=== PATIENT | female | born 1970 | race Caucasian/White ===

== ENCOUNTER 2019-12-25 22:55 | Emergency (ER) | payer OTHER, SELFPAY ==
[2019-12-25 23:04] VITALS: BP 140/78; PULSE 82; RESP 16; TEMP 36.2; O2SAT 99; BMI 23.9
--- NOTE | 2019-12-26 01:44 | ED_ITS ---
HPI - Fall General Chief Complaint: Fall Stated Complaint: fall head lac Time Seen by Provider: 12/26/19 01:41 History of Present Illness HPI Narrative: Patient is a 49-year-old female presents today after fallen accidentally. Patient hit the left temporal area causing a small laceration per patient. Patient denies any loss of consciousness. No nausea no vomiting no change in vision or focal weakness. Patient is not on any blood thinners. No coughing or congestion or upper respiratory symptoms. Patient ambulated to the hospital. She has some home. Pain is localized Related Data Allergies Allergy/AdvReac Type Severity Reaction Status Date / Time No Known Allergies Allergy Unverified 10/31/19 14:52 Review of Systems Review of Systems: Constitutional: No Weight loss, No Fever, No Chills, No Night Sweats, No Fatigue, No Malaise ENT/Mouth: No Hearing loss, No Ear Pain, No Nasal Congestion, No Sinus Pain, No Hoarseness, No sore throat, No Rhinorrhea, No Swallowing Difficulty Eyes: No Eye Pain, No Swelling, No Redness, No Foreign Body, No Discharge, No Vision Changes Cardiovascular: No Chest Pain, No SOB, No Dyspnea on Exertion, No Orthopnea, No Edema, No Palpitations Respiratory: No Cough, No Sputum, No Wheezing, No Smoke Exposure, No Dyspnea Gastrointestinal: No Nausea, No Vomiting, No Diarrhea, No Constipation, No abdominal Pain, No Hematochezia, No Melena Genitourinary: no irregular bleeding, No Dysuria, No Urinary Frequency, No Hematuria, No Urinary Incontinence, No Urgency, No Flank Pain, No Urinary Flow Changes, No Hesitancy Musculoskeletal: No joint pain, No Myalgias, No Joint Swelling Skin: positive laceration to the left temporal area Neuro: No Weakness, No Numbness, No Paresthesias, No Loss of Consciousness, No Dizziness, No Headache Psych: No Anxiety/Panic, No Depression, No SI/HI/AH/VH, No Social Issues, Heme/Lymph: No Bruising, No Bleeding,No Lymphadenopathy Endocrine: No Polyuria, No Polydipsia, No Temperature Intolerance [facility] Social History Social History Advance Directives: No Advance Directives Information Provided: No Physical Exam Vital Signs: Vital Signs: Last Vital Signs Temp 97.1 F 12/25/19 23:04 Pulse 82 12/25/19 23:04 Resp 16 12/25/19 23:04 BP 140/78 H 12/25/19 23:04 Pulse Ox 99 12/25/19 23:04 Body Mass Index 23.9 Appearance: Alert. Oriented X3. No acute distress. Eyes: Pupils equal, round and reactive to light head exam positive 3 cm laceration to the right temporal area down to subcutaneous tissue. Bleeding controlled.. ENT: no hemotympanum bilaterally Neck: Normal inspection. Neck supple. No lymph nodes noted. No crepitus CVS: Normal heart rate and rhythm. Pulses normal. Normal S1 and S2 Respiratory: No respiratory distress. Breath sounds normal. No Wheezing. No rales Abdomen: Soft and nontender. No rigidity. No distention. good BS x4 Skin: Skin warm and dry. Normal skin color. Normal skin turgor. Extremities: No lower extremity edema. Neurovascular intact to all extremities. No Lacerations. No Rash Neuro: Oriented X 3. No motor deficit. No sensory deficit. Moving all extermities. No slurred speech Procedures Laceration Laceration 1: Site: scalp Size (cm): 3 Description: linear Depth: simple, single layer Pre-repair: wound explored and irrigated extensively Skin layer closed with: other ( staple) Size (cm): other ( Two jonathon) MDM - Fall MDM Narrative Medical decision making narrative: no nausea no vomiting no focal weakness. No dizziness no change in vision. At this time felt patient does not need to have a CT scan. Patient is not on blood thinners. Neurologically intact. Wound was closed. Will discharge patient home currently in stable condition. Discharge Plan Discharge Clinical Impression: Laceration, Head injury Patient Disposition: Home, Self-Care Instructions: Head Injury (ED), Laceration (ED) Additional Instructions: Nausea, vomiting change in vision focal weakness on control headache return to the emergency department immediately. Referrals: Physician,None [Primary Care Provider] - 5 days ( Follow-up with your doctor in about 5 days for staple removal. If he cannot find a doctor you are always welcome back to the emergency department for staple removal.)
--- NOTE | 2019-12-26 02:42 | PC.NURSE ---
dc vs 112/55 hr 53. no questions regarding d/c instructions.
== END 2019-12-26 02:41 | disposition home or self-care (01) ==
PROVIDERS: Emergency Provider Emergency Medicine Emergency Medical Services
DX: S01.01XA Laceration without foreign body of scalp, initial encounter (principal); G44.309 Post-traumatic headache, unspecified, not intractable; W01.0XXA Fall on same level from slipping, tripping and stumbling without subsequent striking against object, initial encounter; Y93.9 Activity, unspecified; Y92.9 Unspecified place or not applicable; Y99.9 Unspecified external cause status
CPT/HCPCS: 12002; 99283

== ENCOUNTER 2020-01-01 13:52 | Emergency (ER) | payer OTHER, SELFPAY ==
[2020-01-01 14:32] VITALS: BP 144/76; PULSE 69; RESP 14; TEMP 36.6; O2SAT 100; BMI 24.6
--- NOTE | 2020-01-01 15:27 | ED.RECABL ---
HPI - Recheck/Abnormal Lab/Rx General Chief Complaint: Wound/Laceration Stated Complaint: SUTURE REMOVAL,FACE SWOLLEN Time Seen by Provider: 01/01/20 15:27 Source: patient Mode of arrival: ambulatory Limitations: no limitations History of Present Illness HPI narrative: staple removal. Patient was seen here on 01/2020 and had 2 jonathon placed to her left temporal area. Patient reports she is having pain and swelling. Denies drainage. Denies any other symptoms complaints or concerns at this time. Related Data Previous Rx's Medication Instructions Recorded cephalexin [Keflex] 500 mg PO Q6H 10 Days #40 cap 01/01/20 doxycycline monohydrate 100 mg PO BID 10 Days #20 cap 01/01/20 ibuprofen 800 mg PO Q8H PRN #14 tab 01/01/20 oxycodone-acetaminophen [Percocet] 1 tab PO Q6H PRN #10 tab 01/01/20 Allergies Allergy/AdvReac Type Severity Reaction Status Date / Time No Known Allergies Allergy Unverified 10/31/19 14:52 Review of Systems Review of Systems: Constitutional : No Fever, No Chills, Cardiovascular : No Chest Pain, No SOB Respiratory : No Dyspnea Gastrointestinal : No abdominal pain Musculoskeletal : No Joint Swelling Skin : No Foreign bodies, No rash, No surrounding erythema Neuro : No Weakness, No Numbness/tingling Psych : No SI/HI/thoughts of self injury Yes all other systems are reviewed and are negative [facility]LY [facility], [facility] Past Medical History Attestation statement: The following information was validated with the patient. Social History Social History Advance Directives: No Advance Directives Information Provided: Yes Physical Exam Vital Signs: Vital Signs: Last Vital Signs Temp 97.9 F 01/01/20 14:32 Pulse 69 01/01/20 14:32 Resp 14 01/01/20 14:32 BP 144/76 H 01/01/20 14:32 Pulse Ox 100 01/01/20 14:32 Body Mass Index 24.6 vital signs have been reviewed as normal and appeared to be correct. Blood pressure normal. Heart rate normal. Respiration rate normal. Temperature normal. Oxygen saturation normal. Appearance: Alert. Oriented X3. No acute distress. Head: To left temporal lower aspect there is [address] and mild soft tissue swelling and tender to palpation. No drainage /fluctuance/foreign body noted. No streaking noted. Eyes: PERRLA. EOMI. Conjunctiva and sclera normal. Eyelids normal. ENT: Pharynx normal. Uvula midline. Moist mucous membranes. Neck: Normal inspection. Neck supple. FROM. No adenopathy. No meningeal signs. CVS: Normal heart rate and rhythm. Heart sound normal. Respiratory: No respiratory distress. Painless inspiration. Back: Full range of motion noted. Skin: Skin warm and dry. Normal skin color. Normal skin turgor. No rashes/lesions/lacerations noted. Extremities: Extremities exhibit normal range of motion. Extremities nontender. Neuro: Oriented X 3. No motor deficit. No sensory deficit. Reflexes normal. Course Course Course Narrative: Patient is now status post staple removal. Patient mild soft tissue swelling and tender to palpation will treat for cellulitic infection no purulent drainage noted or streaking. Will DC home with antibiotics and symptomatic treatment along with instructions return if any new or worsening symptoms and to follow up with primary care provider. Patient understands agrees the plan. Procedures Procedure Narrative Procedure Narrative: 2 jonathon removed from left temporal area. Mild soft tissue swelling and erythema to site. No streaking / fluctuance or foreign bodies noted. The wound was cleaned and a clean dressing was placed. Patient tolerated procedure well no complications. MDM - Recheck/Abnormal Lab/Rx Medical Records Attestation: I reviewed the patient's medical records. Discharge Plan Discharge Clinical Impression: Visit for suture removal, Cellulitis Patient Disposition: Home, Self-Care Instructions: Cellulitis (ED), Stitches Removal (ED) Prescriptions: New ibuprofen 800 mg tablet 800 mg PO Q8H PRN (Reason: pain) Qty: 14 RF: 0 oxycodone-acetaminophen [Percocet] 5-325 mg tablet 1 tab PO Q6H PRN (Reason: pain) Qty: 10 RF: 0 doxycycline monohydrate 100 mg capsule 100 mg PO BID 10 Days Qty: 20 RF: 0 cephalexin [Keflex] 500 mg capsule 500 mg PO Q6H 10 Days Qty: 40 RF: 0 Referrals: Anthony Zelaya MD [Primary Care Provider] - 2 days Stand Alone Forms: Work/School Release Print Language: Sinhala
== END 2020-01-01 16:03 | disposition home or self-care (01) ==
PROVIDERS: Emergency Provider Emergency Medicine; PCP Internal Medicine
DX: L03.211 Cellulitis of face (principal); Z48.02 Encounter for removal of sutures; Z79.899 Other long term (current) drug therapy
CPT/HCPCS: 99283

== ENCOUNTER 2020-02-04 09:20 | Outpatient (REF) | payer OTHER, SELFPAY | END 2020-02-04 09:21 | disposition home or self-care (01) | LOC: HO.LAB 09:20 | PROVIDERS: PCP Internal Medicine; Visit Provider Internal Medicine | DX: Z20.828 Contact with and (suspected) exposure to other viral communicable diseases (principal) | CPT/HCPCS: C9803; U0003 ==

== ENCOUNTER 2020-02-08 10:23 | Outpatient (REF) | payer OTHER, SELFPAY | END 2020-02-08 10:24 | disposition home or self-care (01) | LOC: HO.LAB 10:23 | PROVIDERS: Visit Provider Internal Medicine | DX: Z20.828 Contact with and (suspected) exposure to other viral communicable diseases (principal) | CPT/HCPCS: C9803; U0003 ==

== ENCOUNTER 2020-05-22 14:34 | Outpatient (REF) | payer OTHER, SELFPAY ==
[2020-05-23 15:11] LABS: CT PCR NOT DETECTED (Not Detect.); NG PCR NOT DETECTED (Not Detect.)
[2020-05-23 15:13] LABS: BV Int Neg Control Negative (Negative)
[2020-05-23 15:14] LABS: BV Int Pos Control Positive (Positive)
== END 2020-05-22 14:35 | disposition home or self-care (01) ==
LOC: HO.LAB 14:34
PROVIDERS: Visit Provider Obstetrics & Gynecology
DX: Z01.419 Encounter for gynecological examination (general) (routine) without abnormal findings (principal); Z11.3 Encounter for screening for infections with a predominantly sexual mode of transmission
CPT/HCPCS: 87480; 87491; 87510; 87591; 87660

== ENCOUNTER 2020-05-30 09:57 | Outpatient (REF) | payer OTHER, SELFPAY ==
--- NOTE | ~2020-05-30 | MM_ITS ---
EXAMINATION: MM SCREENING DIGITAL BREAST TOMOSYNTHESIS, BILATERAL CLINICAL INFORMATION: Screening. Asymptomatic. The lifetime risk of breast cancer based on the Tyrer-Cuzick Model is 11%. COMPARISON: Mammography: 11/10/2018, 10/28/2017, 10/06/2016 TECHNIQUE: Digital breast tomosynthesis is performed in both the craniocaudal and mediolateral oblique views along with computer-aided detection (CAD). Synthesized 2D images are generated from the tomosynthesis. FINDINGS: There are scattered areas of fibroglandular density (ACR BI-RADS breast composition Category b). There are no significant masses, abnormal calcifications, or other abnormalities. Parenchymal pattern is similar to prior exams. No significant changes. MM/MM tomosynthesis screening BI IMPRESSION: No mammographic evidence of malignancy. ASSESSMENT: BI-RADS 1: Negative RECOMMENDATION: Routine annual mammography screening. This patient's information was entered into a reminder system with a target due date for their next mammogram.
== END 2020-05-30 09:58 | disposition home or self-care (01) ==
LOC: HO.MAMMO 09:57
PROVIDERS: Visit Provider Internal Medicine
DX: Z12.31 Encounter for screening mammogram for malignant neoplasm of breast (principal)
CPT/HCPCS: 77063; 77067

== ENCOUNTER 2020-06-13 19:48 | Emergency (ER) | payer OTHER, SELFPAY ==
--- NOTE | ~2020-06-13 | XR_ITS ---
EXAMINATION: XR FINGER, LEFT CLINICAL INFORMATION: Thumb laceration COMPARISON: None TECHNIQUE: 3 views of the left thumb. FINDINGS: There is disruption of soft tissues on the ventral surface thumb. The bones and soft tissues are unremarkable. No acute fracture. No foreign body. Accessory ossicles adjacent to the PIP and MCP joint first digit. Alignment is anatomic. Joint spaces are maintained. XR/XR finger LT min 2V IMPRESSION: No fracture or retained foreign body
[2020-06-13 20:01] VITALS: BP 141/82; PULSE 67; RESP 18; TEMP 36.6; O2SAT 100; BMI 24.6
--- NOTE | 2020-06-13 20:34 | ED.WOUNDLAC ---
HPI - Wound/Laceration General Chief Complaint: Wound/Laceration Stated Complaint: finger lac Time Seen by Provider: 06/13/20 21:19 Source: patient Mode of arrival: ambulatory Limitations: no limitations History of Present Illness HPI narrative: 50-year-old female presents with left thumb laceration. Patient was cutting frozen meat, slipped with her knife and cut her left thumb. Unknown when her last Tdap vaccination was given. Patient does have full range of motion but cannot stop the bleeding on her own. Onset (ago): hour(s) (Within the hour of arrival) Extremity Location: left: hand (thumb) Place: home Patient tetanus UTD: No Context: accidental Associated symptoms: pain Treatments prior to arrival: bandage Related Data Previous Rx's Medication Instructions Recorded cephalexin [Keflex] 500 mg PO Q6H 10 Days #40 cap 01/01/20 doxycycline monohydrate 100 mg PO BID 10 Days #20 cap 01/01/20 ibuprofen 800 mg PO Q8H PRN #14 tab 01/01/20 oxycodone-acetaminophen [Percocet] 1 tab PO Q6H PRN #10 tab 01/01/20 psyllium husk (aspartame) 3.4 gram 1 packet PO DAILY #30 ea 05/22/20 oral powder packet sennosides 8.6 mg tablet 8.6 mg PO BEDTIME #90 tab 05/22/20 metronidazole 0.75 % vaginal gel 1 appful VAGINAL BEDTIME 5 Days 05/26/20 #70 g Allergies Allergy/AdvReac Type Severity Reaction Status Date / Time No Known Allergies Allergy Verified 06/13/20 20:04 Review of Systems Review of Systems: Constitutional: No Fever, No Chills ENT/Mouth: No Ear Pain, No Hoarseness, No sore throat Eyes: No Eye Pain, No Swelling, No Redness, No Foreign Body Cardiovascular: No Chest Pain, No SOB Respiratory: No Cough, No Dyspnea Gastrointestinal: No Nausea, No Vomiting, No Diarrhea, No abdominal Pain Genitourinary: No Dysuria, No Hematuria Musculoskeletal: positive left thumb pain, No Myalgias, No Joint Swelling Skin: Positive left thumb laceration, No rash Neuro: No Weakness, No Numbness, No Paresthesias, No Loss of Consciousness, No Dizziness, No Headache Psych: No Anxiety/Panic, No Depression Heme/Lymph: no easy bruising, no Lymphadenopathy Endocrine: No Polyuria, No Polydipsia Yes all other systems are reviewed and are negative FOR[facility]LY [facility] Past Medical History Attestation statement: The following information was validated with the patient. Source: old records reviewed Medical History HTN (hypertension) Migraines Surgical History History of delivery Social History Social History Alcohol intake: never Smoking Status: Current every day smoker Advance Directives: No Advance Directives Information Provided: Yes Gender identity: female Physical Exam Vital Signs: Vital Signs: Last Vital Signs Temp 97.8 F 06/13/20 20:01 Pulse 67 06/13/20 20:01 Resp 18 06/13/20 20:01 BP 141/82 H 06/13/20 20:01 Pulse Ox 100 06/13/20 20:01 Body Mass Index 24.6 Appearance: Alert. Oriented X3. No acute distress. Eyes: Pupils equal, round and reactive to light. ENT: Pharynx normal. Neck: Normal inspection. Neck supple. CVS: Normal heart rate and rhythm. Pulses normal. Respiratory: No respiratory distress. Breath sounds normal. Abdomen: Soft and nontender. Skin: Skin warm and dry. Normal skin color. Normal skin turgor. Extremities: No lower extremity edema. Neuro: No motor deficit. No sensory deficit. Course Course Course Narrative: 50-year-old female with past medical history of hypertension and migraines presents with some laceration to the left side. States that she was cutting frozen meat, knife slipped and cut the tip of her left thumb. Will update Tdap vaccine, order x-rays, and plan for laceration repair. She does have full range of motion to all extremities, strength 5/5, no indication of tendon injury. No nail involvement. Prepped and draped in sterile fashion. Please refer to procedure note for full details. Patient tolerated procedure well. Patient verbalized understanding of wound care, discharge instructions and agrees to plan of care discharge home. Will return in 10 days for suture removal. Procedures Laceration Laceration 1: Site: hand (Left thumb) Size (cm): 3 Description: linear Depth: simple, single layer Local Anesthetic: lidocaine 2% Amount of anesthesia used (mL): 5 Pre-repair: wound explored, irrigated extensively and deep structures intact Skin layer closed with: nylon Size (cm): 5-0 Number of sutures: 5 Technique: simple, interrupted MDM - Wound/Laceration Differential Diagnosis Differential diagnosis: Likely laceration Medical Records Attestation: I reviewed the patient's medical records. Imaging Data thumb x-ray: Attestation: I personally reviewed and interpreted this imaging study as follows: Discharge Plan Discharge Clinical Impression: Laceration Patient Disposition: Home, Self-Care Instructions: Care For Your Stitches (ED), Finger Laceration (ED) Additional Instructions: You were evaluated for thumb laceration. You may wash her hands but do not soak your hand for long periods of time, do not swim or go into a hot tub. Do not wash dishes until sutures are removed. You may cover your hand with a glove to keep the wound dry. If you notice any swelling, loss of sensation, or purulent drainage from the site please return to the emergency department or primary care physician for evaluation. We updated your Tdap vaccine today. Thank you for choosing this emergency department for evaluation. Please follow-up with primary care physician as needed. Return to the emergency department for any new, concerning, or worsening symptoms. Prescriptions: No Action metronidazole [Metrogel Vaginal] 0.75 % gel 1 appful vaginal BEDTIME 5 Days Qty: 70 RF: 0 ibuprofen 800 mg tablet 800 mg PO Q8H PRN (Reason: pain) Qty: 14 RF: 0 oxycodone-acetaminophen [Percocet] 5-325 mg tablet 1 tab PO Q6H PRN (Reason: pain) Qty: 10 RF: 0 doxycycline monohydrate 100 mg capsule 100 mg PO BID 10 Days Qty: 20 RF: 0 cephalexin [Keflex] 500 mg capsule 500 mg PO Q6H 10 Days Qty: 40 RF: 0 sennosides [Senna Lax] 8.6 mg tablet 8.6 mg PO BEDTIME Qty: 90 RF: 11 Metamucil Fiber Singles 3.4 gram powder in packet 1 packet PO DAILY Qty: 30 RF: 11 Interventions: ED Discharge Assessment Last Done: 06/13/20 21:59 Discharge Date/Time: 06/13/20 22:00
[2020-06-13] MEDS: Lidocaine HCl 2 % MPF 5 ML VIAL 10 ML SUBCUT (21:11)
[2020-06-13] MEDS: Diphth,Pertus(ACell),Tet Adult 0.5 ML SYRINGE IM (21:11)
== END 2020-06-13 22:00 | disposition home or self-care (01) ==
PROVIDERS: Emergency Provider Emergency Medicine
DX: S61.215A Laceration without foreign body of left ring finger without damage to nail, initial encounter (principal); M79.645 Pain in left finger(s); W26.0XXA Contact with knife, initial encounter; Y93.9 Activity, unspecified; Y92.9 Unspecified place or not applicable; Y99.9 Unspecified external cause status; F17.200 Nicotine dependence, unspecified, uncomplicated; Z79.899 Other long term (current) drug therapy; Z71.6 Tobacco abuse counseling
CPT/HCPCS: 12002; 73140; 90471; 90715; 99284

== ENCOUNTER 2020-06-22 10:13 | Emergency (ER) | payer OTHER, SELFPAY ==
[2020-06-22 10:28] VITALS: BP 136/86; PULSE 77; RESP 18; TEMP 36.5; O2SAT 99; BMI 24.6
--- NOTE | 2020-06-22 11:12 | ED_ITS ---
HPI - General Adult General Chief complaint: Skin/Abscess/Foreign Body Stated complaint: wound check Source: patient Mode of arrival: ambulatory Limitations: no limitations History of Present Illness HPI narrative: Patient presents to ED for wound check of left hand thumb. Patient has sutures placed last Monday. Patient complaining since laceration occurred of having some numbness to left thumb. NO pus discharge, foul odor, fever redmess, or chills at suture repair site. Related Data Previous Rx's Medication Instructions Recorded cephalexin [Keflex] 500 mg PO Q6H 10 Days #40 cap 01/01/20 doxycycline monohydrate 100 mg PO BID 10 Days #20 cap 01/01/20 ibuprofen 800 mg PO Q8H PRN #14 tab 01/01/20 oxycodone-acetaminophen [Percocet] 1 tab PO Q6H PRN #10 tab 01/01/20 psyllium husk (aspartame) 3.4 gram 1 packet PO DAILY #30 ea 05/22/20 oral powder packet sennosides 8.6 mg tablet 8.6 mg PO BEDTIME #90 tab 05/22/20 metronidazole 0.75 % vaginal gel 1 appful VAGINAL BEDTIME 5 Days 05/26/20 #70 g Allergies Allergy/AdvReac Type Severity Reaction Status Date / Time No Known Allergies Allergy Verified 06/13/20 20:04 Review of Systems Review of Systems: Yes all other systems are reviewed and are negative Constitutional: Constitutional: Reports as per HPI and Reports no additional constitutional complaints Eyes: Eyes: Reports as per HPI and Reports no additional eye complaints ENT: Reports system reviewed and no additional complaints, except as documented and Reports as per HPI Cardiovascular: Cardiovascular: Reports as per HPI and Reports no additional cardiovascular complaints Respiratory: Respiratory: Reports as per HPI and Reports no additional respiratory complaints Gastrointestinal: Gastrointestinal: Reports as per HPI and Reports no additional gastrointestinal complaints Genitourinary: Genitourinary: Reports no additional female genitourinary complaints and Reports as per HPI Musculoskeletal: Musculoskeletal: Reports no additional musculoskeletal complaints and Reports as per HPI Comments: left thumb Neurologic: Reports system reviewed and no additional complaints, except as documented and Reports as per HPI Psychiatric: Psychiatric: Reports no additional psychiatric complaints and Reports as per HPI PMFSH Past Medical History Medical History HTN (hypertension) Migraines Surgical History History of delivery Social History Social History Alcohol intake: never Smoking Status: Current every day smoker Advance Directives: No Advance Directives Information Provided: No Patient : No Gender identity: female Physical Exam 2 Vital Signs: Vital Signs: Last Vital Signs Temp 97.7 F 06/22/20 10:28 Pulse 77 06/22/20 10:28 Resp 18 06/22/20 10:28 BP 136/86 06/22/20 10:28 Pulse Ox 99 06/22/20 10:28 Body Mass Index 24.6 Const: General: cooperative, healthy appearing, comfortable, no acute distress, well developed, alert and awake Orientation/consciousness: patient oriented x3 HENMT: Head: Yes normal to inspection, Yes No palpable skull fracture present, Yes normocephalic, Yes atraumatic and No abrasion Eyes: General: appearance normal, both eyes and all related structures Neck: Neck: Yes normal visual inspection, Yes full ROM, Yes no lymphadenopathy, Yes no meningeal signs, Yes trachea midline, Yes supple and No tender Chest: Chest palpation & inspection: normal inspection of the chest and normal palpation of entire chest wall Resp: Effort & Inspection: normal respiratory effort and able to speak in complete sentences Cardio: Jugular venous distension: no JVD Heart sounds: S1 normal heart sound present and S2 normal heart sound present GI: Inspection: Yes normal to inspection and No abdominal wall ecchymosis Palpation (GI): Soft to palpation, not firm, nontender, no guarding and not rigid : General: No CVA tenderness and Yes no CVA tenderness Back/Spine/Pelvis: Back: no CVA tenderness, No CVA tenderness and No back tenderness Skin: General skin exam: no rashes or lesions noted and elasticity normal Neuro: General: patient oriented x3, gait normal, no meningeal signs and CN's II-XI intact bilaterally Cranial nerves: Yes CN's II-XII intact bilaterally Extrem: Other: Left upper extremity: Suture area negative for any erythema, pus discharge, foul odor, or warmth. Negative for bluish discoloration of left thumb. Good capillary refill. Patient able to flex and extend thumb. Patient has good sensation of left thumb. General: Yes normal to inspection and Yes full ROM Psych: Appearance: grossly normal, well kempt and not disheveled Course Course Course Narrative: Left thumb/hand negative for signs of necrosis, arterial occlusion, or cellulitis. Patient sutures have to be removed within the neck is 2 days which will make it 10 days Reevaluation(s) Reevaluation #1: No intervention needed. History physical exam does not indicate cellulitis, wound infection, DVT, tendonititis, or artery/venous occlusion/vascular compromise. Discharge Plan Discharge Clinical Impression: Encounter for wound re-check Patient Disposition: Home, Self-Care Instructions: Finger Laceration (ED) Additional Instructions: Return to the ED immediately for any swelling, redness, pus discharge, foul odor, inability to move finger, bluish discoloration of finger, coldness, loss of sensation, or any other concerning symptoms. Please return to the ED on 06/24/20 for suture removal. Prescriptions: No Action metronidazole [Metrogel Vaginal] 0.75 % gel 1 appful vaginal BEDTIME 5 Days Qty: 70 RF: 0 ibuprofen 800 mg tablet 800 mg PO Q8H PRN (Reason: pain) Qty: 14 RF: 0 oxycodone-acetaminophen [Percocet] 5-325 mg tablet 1 tab PO Q6H PRN (Reason: pain) Qty: 10 RF: 0 doxycycline monohydrate 100 mg capsule 100 mg PO BID 10 Days Qty: 20 RF: 0 cephalexin [Keflex] 500 mg capsule 500 mg PO Q6H 10 Days Qty: 40 RF: 0 sennosides [Senna Lax] 8.6 mg tablet 8.6 mg PO BEDTIME Qty: 90 RF: 11 Metamucil Fiber Singles 3.4 gram powder in packet 1 packet PO DAILY Qty: 30 RF: 11 Stand Alone Forms: Work/School Release Interventions: ED Discharge Assessment Last Done: 06/22/20 11:34 Discharge Date/Time: 06/22/20 11:34 Print Language: Belarusian
== END 2020-06-22 11:34 | disposition home or self-care (01) ==
PROVIDERS: Emergency Provider Emergency Medicine; PCP Internal Medicine
DX: Z48.00 Encounter for change or removal of nonsurgical wound dressing (principal); S61.012D Laceration without foreign body of left thumb without damage to nail, subsequent encounter; W45.8XXD Other foreign body or object entering through skin, subsequent encounter
CPT/HCPCS: 99282; 99283

== ENCOUNTER 2020-08-27 19:55 | Emergency (ER) | payer OTHER, SELFPAY ==
--- NOTE | ~2020-08-27 | XR_ITS ---
EXAMINATION: XR CHEST CLINICAL INFORMATION: Rib pain. COMPARISON: Chest x-ray April 01, 2015 TECHNIQUE: 2 views of the chest were obtained. FINDINGS: No significant abnormality is noted involving the heart, lungs, mediastinum, bony thorax or soft tissues. XR/XR chest 2V IMPRESSION: Unremarkable examination.
[2020-08-27 20:17] VITALS: BP 134/70; PULSE 77; RESP 16; TEMP 37.3; O2SAT 98; BMI 24.6
--- NOTE | 2020-08-27 21:10 | ED_ITS ---
HPI - General Adult General Chief complaint: General Medical Stated complaint: Rip pain Time Seen by Provider: 08/27/20 20:58 Source: patient Mode of arrival: ambulatory Limitations: no limitations History of Present Illness HPI narrative: 50-year-old female presents with left-sided rib pain. Does not report any trauma or assault but states that she does have a very physically demanding job. She does not report any pain on inspiration, palpitations, chest pressure, shortness breath, shortness breath on exertion, abdominal pain, abdominal distention, dysuria, hematuria, fevers chills, nausea, vomiting, diarrhea, constipation, or edema. Onset (ago): day(s) Location: left Radiation: non-radiation Severity: moderate Severity scale (1-10): 6 Quality: aching Pain Consistency: intermittent Relieving factors: rest Exacerbating factors: movement Associated symptoms: denies other symptoms Treatments prior to arrival: none Related Data Previous Rx's Medication Instructions Recorded cephalexin [Keflex] 500 mg PO Q6H 10 Days #40 cap 01/01/20 doxycycline monohydrate 100 mg PO BID 10 Days #20 cap 01/01/20 ibuprofen 800 mg PO Q8H PRN #14 tab 01/01/20 oxycodone-acetaminophen [Percocet] 1 tab PO Q6H PRN #10 tab 01/01/20 psyllium husk (aspartame) 3.4 gram 1 packet PO DAILY #30 ea 05/22/20 oral powder packet sennosides 8.6 mg tablet 8.6 mg PO BEDTIME #90 tab 05/22/20 metronidazole 0.75 % vaginal gel 1 appful VAGINAL BEDTIME 5 Days 05/26/20 #70 g ibuprofen 600 mg PO TID PRN #60 tab 08/27/20 Allergies Allergy/AdvReac Type Severity Reaction Status Date / Time No Known Allergies Allergy Verified 06/13/20 20:04 Review of Systems Review of Systems: Constitutional: No Fever, No Chills ENT/Mouth: No Ear Pain, No Hoarseness, No sore throat Eyes: No Eye Pain, No Swelling, No Redness, No Foreign Body Cardiovascular: No Chest Pain, No SOB Respiratory: No Cough, No Dyspnea Gastrointestinal: No Nausea, No Vomiting, No Diarrhea, No abdominal Pain Genitourinary: No Dysuria, No Hematuria Musculoskeletal: positive left chest wall pain, No Myalgias, No Joint Swelling Skin: No Skin lacerations, No rash Neuro: No Weakness, No Numbness, No Paresthesias, No Loss of Consciousness, No Dizziness, No Headache Psych: No Anxiety/Panic, No Depression Heme/Lymph: no easy bruising, no Lymphadenopathy Endocrine: No Polyuria, No Polydipsia Yes all other systems are reviewed and are negative PMFSH Past Medical History Attestation statement: The following information was validated with the patient. Source: old records reviewed Medical History HTN (hypertension) Migraines Surgical History History of delivery Social History Social History Alcohol intake: current Alcohol intake frequency: a few times a week Patient Tobacco Use Status: Current everyday Tobacco user Use of substances other than those prescribed or required for medical reasons: No Advance Directives: No Patient : No Gender identity: female Physical Exam Vital Signs: Vital Signs: Last Vital Signs Temp 99.2 F 08/27/20 20:17 Pulse 77 08/27/20 20:17 Resp 16 08/27/20 20:17 BP 134/70 08/27/20 20:17 Pulse Ox 98 08/27/20 20:17 Body Mass Index 24.6 Appearance: Alert. Oriented X3. No acute distress. Eyes: Pupils equal, round and reactive to light. ENT: Pharynx normal. Neck: Normal inspection. Neck supple. CVS: Normal heart rate and rhythm. Pulses normal. Positive reproducible left chest wall pain to palpation Respiratory: No respiratory distress. Breath sounds normal. Abdomen: Soft and nontender. Skin: Skin warm and dry. Normal skin color. Normal skin turgor. Extremities: No lower extremity edema. Neuro: No motor deficit. No sensory deficit. Course Course Course Narrative: 50-year-old female presents with left chest wall pain. States have a physically demanding job with repetitive motion, does not report any trauma or signs symptoms indicating cardiac event. Patient's chest pain is reproducible. Will order chest x-ray. Patient is resting comfortably, appears to be in no distress, appears nontoxic, and neurovascularly intact. Chest x-rays negative for acute findings requiring emergent intervention. Plan of care is to discharge home with lidocaine patch and Motrin. Medical Decision Making Differential Diagnosis Differential Diagnosis: Costochondritis, rib contusion, rib fracture Medical Records Medical records reviewed: Yes I reviewed the patient's medical records. Lab Data Lab results reviewed: Yes I reviewed the patient's lab results. Imaging Data Chest x-ray: Attestation: I personally reviewed and interpreted this imaging study as follows: Radiologist's impression: EXAMINATION: XR CHEST CLINICAL INFORMATION: Rib pain. COMPARISON: Chest x-ray April 01, 2015 TECHNIQUE: 2 views of the chest were obtained. FINDINGS: No significant abnormality is noted involving the heart, lungs, mediastinum, bony thorax or soft tissues. XR/XR chest 2V IMPRESSION: Unremarkable examination. Discharge Plan Discharge Clinical Impression: Contusion of rib on left side Patient Disposition: Home, Self-Care Instructions: Rib Contusion (ED) Additional Instructions: You were evaluated for left-sided rib pain. X-rays are negative for fracture however your symptoms are consistent with rib contusion. Please use Tylenol Motrin as needed for pain management. Follow-up with primary care provider as needed. Thank you for choosing this emergency department for evaluation. Please follow -up with primary care physician as needed. Return to the emergency department for any new, concerning, or worsening symptoms. Prescriptions: New ibuprofen 600 mg tablet 600 mg PO TID PRN (Reason: pain) Qty: 60 RF: 0 No Action metronidazole [Metrogel Vaginal] 0.75 % gel 1 appful vaginal BEDTIME 5 Days Qty: 70 RF: 0 ibuprofen 800 mg tablet 800 mg PO Q8H PRN (Reason: pain) Qty: 14 RF: 0 oxycodone-acetaminophen [Percocet] 5-325 mg tablet 1 tab PO Q6H PRN (Reason: pain) Qty: 10 RF: 0 doxycycline monohydrate 100 mg capsule 100 mg PO BID 10 Days Qty: 20 RF: 0 cephalexin [Keflex] 500 mg capsule 500 mg PO Q6H 10 Days Qty: 40 RF: 0 sennosides [Senna Lax] 8.6 mg tablet 8.6 mg PO BEDTIME Qty: 90 RF: 11 Metamucil Fiber Singles 3.4 gram powder in packet 1 packet PO DAILY Qty: 30 RF: 11 Stand Alone Forms: Work/School Release Interventions: ED Discharge Assessment Last Done: 08/27/20 22:09 Discharge Date/Time: 08/27/20 22:10
[2020-08-27] MEDS: Ketorolac Tromethamine 60 MG/2 ML VIAL IM (21:41)
[2020-08-27] MEDS: Lidocaine 4 % Patch ADH..PATCH 1 PATCH TRANSDERMA (21:41)
== END 2020-08-27 22:10 | disposition home or self-care (01) ==
PROVIDERS: Emergency Provider Internal Medicine; PCP Internal Medicine
DX: S20.212A Contusion of left front wall of thorax, initial encounter (principal); X50.3XXA Overexertion from repetitive movements, initial encounter; Y93.9 Activity, unspecified; Y92.9 Unspecified place or not applicable; Y99.0 Civilian activity done for income or pay
CPT/HCPCS: 71046; 96372; 99284; J1885

== ENCOUNTER 2021-06-12 09:38 | Outpatient (REF) | payer OTHER, SELFPAY ==
--- NOTE | ~2021-06-12 | MM_ITS ---
EXAMINATION: MM SCREENING DIGITAL BREAST TOMOSYNTHESIS, BILATERAL CLINICAL INFORMATION: Screening. Asymptomatic. The lifetime risk of breast cancer based on the Tyrer-Cuzick Model is 10%. COMPARISON: Mammography: 05/30/2020, 11/10/2018, 10/28/2017 TECHNIQUE: Digital breast tomosynthesis is performed in both the craniocaudal and mediolateral oblique views along with computer-aided detection (CAD). Synthesized 2D images are generated from the tomosynthesis. FINDINGS: There are scattered areas of fibroglandular density (ACR BI-RADS breast composition Category b). There are no significant masses, abnormal calcifications, or other abnormalities. No developing density or architectural abnormality. The axilla are unremarkable. No significant changes. MM/MM tomosynthesis screening BI IMPRESSION: No mammographic evidence of malignancy. ASSESSMENT: BI-RADS 1: Negative RECOMMENDATION: Routine annual mammography screening. This patient's information was entered into a reminder system with a target due date for their next mammogram.
== END 2021-06-12 09:39 | disposition home or self-care (01) ==
LOC: HO.MAMMO 09:38
PROVIDERS: Visit Provider Internal Medicine
DX: Z12.31 Encounter for screening mammogram for malignant neoplasm of breast (principal)
CPT/HCPCS: 77063; 77067

== ENCOUNTER 2022-06-18 08:35 | Outpatient (REF) | payer OTHER, SELFPAY ==
--- NOTE | ~2022-06-18 | MM_ITS ---
EXAMINATION: MM SCREENING DIGITAL BREAST TOMOSYNTHESIS, BILATERAL CLINICAL INFORMATION: Screening. Asymptomatic. The lifetime risk of breast cancer based on the Tyrer-Cuzick Model is 10%. COMPARISON: Mammography 06/12/2021, 05/30/2020, 11/10/2018. TECHNIQUE: Digital breast tomosynthesis is performed in both the craniocaudal and mediolateral oblique views along with computer-aided detection (CAD). Synthesized 2D images are generated from the tomosynthesis. FINDINGS: There are scattered areas of fibroglandular density (ACR BI-RADS breast composition Category b). Breast tissue composition borders on predominantly fatty. Background stromal and fibroglandular densities are similar to prior exams. No developing density or architectural abnormality. There are no significant masses, abnormal calcifications, or other abnormalities. The axilla and skin contours are unremarkable. MM/MM tomosynthesis screening BI IMPRESSION: No mammographic evidence of malignancy. ASSESSMENT: BI-RADS 1: Negative RECOMMENDATION: Routine annual mammography screening. This patient's information was entered into a reminder system with a target due date for their next mammogram.
== END 2022-06-18 08:36 | disposition home or self-care (01) ==
LOC: HO.MAMMO 08:35
PROVIDERS: PCP Internal Medicine; Visit Provider Internal Medicine
DX: Z12.31 Encounter for screening mammogram for malignant neoplasm of breast (principal)
CPT/HCPCS: 77063; 77067

== ENCOUNTER 2022-08-15 08:36 | Outpatient (REF) | payer OTHER, SELFPAY ==
[2022-08-20 05:34] LABS: HPV mRNA E6/E7 rflx Not Detected (Not Detected)
== END 2022-08-15 08:37 | disposition home or self-care (01) ==
LOC: HO.LNP 08:36
PROVIDERS: PCP Internal Medicine; Visit Provider Advanced Practice Midwife
DX: Z01.419 Encounter for gynecological examination (general) (routine) without abnormal findings (principal); Z11.51 Encounter for screening for human papillomavirus (HPV); Z87.42 Personal history of other diseases of the female genital tract
CPT/HCPCS: 0353U; 87480; 87510; 87624; 87660; 88142

== ENCOUNTER 2022-08-30 12:22 | Outpatient (REF) | payer OTHER, SELFPAY ==
[2022-08-30 13:06] LABS: MANUAL DIFF FLAG NO
[2022-08-30 13:10] LABS: Basophils Percent Auto 0.4 % (0-2); Eosinophils Absolute Auto 0.1 X10*3/uL (0.0-0.4); Eosinophils Percent Auto 1.2 % (0-4); Hematocrit 37.5 % (37.0-47.0); Imm Gran Abs Auto 0.02 X10*3/uL (0.00-0.03); Imm Gran Pct Auto 0.3 % (0.0-0.4); Lymphocytes Percent Auto 26.2 % (20-40); Mean Corpuscular Hemoglobin 29.1 pg (27.0-33.0); Mean Corpuscular Volume 90.8 fL (80.0-98.0); Mean Platelet Volume 12.6 fL (9.4-12.3); Monocytes Absolute Auto 0.6 X10*3/uL (0.1-1.2); Monocytes Percent Auto 7.7 % (2-11); Neutrophils Percent Auto 64.2 % (45-73); Platelet Count 205 X10*3/uL (160-400); Red Blood Count 4.13 X10*6/uL (4.20-5.50); Red Cell Distribution Width 13.9 % (11.0-16.0); White Blood Count 7.7 X10*3/uL (4.8-10.8)
[2022-08-30 13:58] LABS: Alanine Aminotransferase 8 U/L (0-31); Albumin Level 3.9 g/dL (3.5-5.0); Alkaline Phosphatase 78 U/L (39-117); Anion Gap 10 (12-20); Aspartate Amino Transferase 17 U/L (5-31); Bilirubin Total 0.8 mg/dL (0.0-1.0); Blood Urea Nitrogen 15 mg/dL (9-16); Calcium 9.2 mg/dL (8.4-10.2); Carbon Dioxide 27 mmol/L (22-29); Chloride 110 mmol/L (96-108); Cholesterol 165 mg/dL; Estimated Glomerular Filt Rate > 60; Glucose Random 90 mg/dL (60-115); HDL Cholesterol 57 mg/dL; LDL Cholesterol Calculated 100 mg/dl; Potassium 3.8 mmol/L (3.3-5.1); Sodium 143 mmol/L (135-145); Total Protein 6.9 g/dL (6.5-8.0); Triglycerides 41 mg/dL
[2022-08-30 14:13] LABS: Thyroid Stimulating Hormone 1.61 uIU/mL (0.32-4.0)
== END 2022-08-30 12:23 | disposition home or self-care (01) ==
LOC: HO.10HDL 12:22
PROVIDERS: Visit Provider Internal Medicine
DX: Z00.00 Encounter for general adult medical examination without abnormal findings (principal); Z13.31 Encounter for screening for depression; K59.00 Constipation, unspecified; M79.18 Myalgia, other site; Z72.0 Tobacco use; E78.00 Pure hypercholesterolemia, unspecified
CPT/HCPCS: 36415; 80053; 80061; 84443; 85025

== ENCOUNTER 2022-12-06 11:02 | Outpatient (REF) | payer OTHER, SELFPAY ==
[2022-12-08 17:39] LABS: Follicle Stimulating Hormone 5.2 mIU/mL
== END 2022-12-06 11:03 | disposition home or self-care (01) ==
LOC: HO.10HDL 11:02
PROVIDERS: Visit Provider Internal Medicine
DX: E28.2 Polycystic ovarian syndrome (principal); G47.62 Sleep related leg cramps; I83.90 Asymptomatic varicose veins of unspecified lower extremity; N95.0 Postmenopausal bleeding; Z72.0 Tobacco use
CPT/HCPCS: 36415; 83001

== ENCOUNTER 2023-06-24 09:16 | Outpatient (REF) | payer BC, SELFPAY | END 2023-06-24 09:17 | disposition home or self-care (01) | LOC: HO.MAMMO 09:16 | PROVIDERS: PCP Internal Medicine; Visit Provider Internal Medicine | DX: Z12.31 Encounter for screening mammogram for malignant neoplasm of breast (principal) | CPT/HCPCS: 77063; 77067 ==

== ENCOUNTER → 2023-06-24 09:45 | Outpatient (BNV) | payer BC, SELFPAY | PROVIDERS: PCP Internal Medicine; Visit Provider Radiology Diagnostic Radiology | DX: Z12.31 Encounter for screening mammogram for malignant neoplasm of breast (principal) | CPT/HCPCS: 77063; 77067 ==

== ENCOUNTER 2023-09-19 11:55 | Outpatient (REF) | payer BC, SELFPAY ==
[2023-09-19 13:12] LABS: MANUAL DIFF FLAG NO
[2023-09-19 13:49] LABS: Basophils Percent Auto 0.4 % (0-2); Eosinophils Absolute Auto 0.1 X10*3/uL (0.0-0.4); Eosinophils Percent Auto 0.7 % (0-4); Hematocrit 34.9 % (37.0-47.0); Hemoglobin 11.5 g/dl (12.0-16.0); Imm Gran Abs Auto 0.05 X10*3/uL (0.00-0.03); Imm Gran Pct Auto 0.6 % (0.0-0.4); Lymphocytes Percent Auto 23.5 % (20-40); Mean Corpuscular Volume 91.1 fL (80.0-98.0); Monocytes Absolute Auto 0.7 X10*3/uL (0.1-1.2); Monocytes Percent Auto 8.6 % (2-11); Neutrophils Absolute Auto 5.5 x10*3/uL (2.0-8.3); Neutrophils Percent Auto 66.2 % (45-73); Platelet Count 206 X10*3/uL (160-400); Red Blood Count 3.83 X10*6/uL (4.20-5.50); Red Cell Distribution Width 14.1 % (11.0-16.0); White Blood Count 8.3 X10*3/uL (4.8-10.8)
[2023-09-19 14:00] LABS: Alanine Aminotransferase 10 U/L (0-31); Albumin Level 3.9 g/dL (3.5-5.0); Alkaline Phosphatase 85 U/L (39-117); Anion Gap 12 (12-20); Aspartate Amino Transferase 19 U/L (5-31); Bilirubin Total 0.5 mg/dL (0.0-1.0); Blood Urea Nitrogen 11 mg/dL (9-16); Calcium 9.2 mg/dL (8.4-10.2); Carbon Dioxide 28 mmol/L (22-29); Chloride 106 mmol/L (96-108); Cholesterol 153 mg/dL (<200); Estimated Glomerular Filt Rate > 60; Glucose Random 86 mg/dL (60-115); HDL Cholesterol 53 mg/dL (>40); LDL Cholesterol Calculated 88 mg/dL (<100); Potassium 3.7 mmol/L (3.3-5.1); Sodium 142 mmol/L (135-145); Total Protein 7.1 g/dL (6.5-8.0); Triglycerides 61 mg/dL (<150)
[2023-09-19 14:57] LABS: CT PCR NOT DETECTED (Not Detect.); NG PCR NOT DETECTED (Not Detect.)
== END 2023-09-19 11:56 | disposition home or self-care (01) ==
LOC: HO.10HDL 11:55
PROVIDERS: Visit Provider Internal Medicine
DX: Z00.00 Encounter for general adult medical examination without abnormal findings (principal); F17.201 Nicotine dependence, unspecified, in remission; Z12.4 Encounter for screening for malignant neoplasm of cervix; Z13.31 Encounter for screening for depression
CPT/HCPCS: 80053; 80061; 85025; 87491; 87591

== ENCOUNTER 2024-07-05 18:01 | Emergency (ER) | payer OTHER, SELFPAY ==
--- NOTE | ~2024-07-05 | XR_ITS ---
CLINICAL HISTORY: pain --- Additional Notes or Special Instructions: constipation? 1 view abdomen Comparison: None Findings: Moderate amount of stool in the colon. No bowel obstruction. No pneumoperitoneum or pneumatosis. No abnormal calcifications. No acute fractures. IMPRESSION: Moderate amount of stool in the colon. No bowel obstruction. This document has been electronically signed by: Franck Suero MD on 07/05/2024 22:05:06
[2024-07-05 18:06] VITALS: BP 155/74; PULSE 80; RESP 18; TEMP 36; O2SAT 99; BMI 36.0
--- NOTE | 2024-07-05 18:08 | ED_ITS ---
HPI - General Adult General Chief complaint: General Medical Stated complaint: Right leg, back, Abd Pain Time Seen by Provider: 07/05/24 19:16 Source: patient Limitations: no limitations History of Present Illness ED Provider: Fartun Castanon PA-C HPI narrative: 54-year-old female presents with multiple complaints. Patient states she has had right-sided low back pain with radiation around to the right lower abdomen and down the right lower extremity for months. Associated abdominal distention. Denies nausea, vomiting, diarrhea, constipation or fever. Patient states pain is worse in her abdomen and back with movement. Patient denies new activity heavy lifting or trauma, that could have precipitated her symptoms. Patient denies bowel incontinence, urinary retention, weakness of lower extremities or paresthesia. Patient also states ?I feel something moving in my belly something kicking me I think I am ?. Patient states she has taken a test at home which was negative. Related Data Previous Rx's ?Medication ?Instructions ?Recorded psyllium husk 3.4 gram oral powder 1 packet PO DAILY #30 ea 08/15/22 packet (Metamucil Fiber Singles) docusate sodium 100 mg capsule 100 mg PO BID #14 caps 07/05/24 (Col-Rite) ibuprofen 600 mg tablet 600 mg PO Q6H PRN pain #20 tabs 07/05/24 methocarbamol 750 mg tablet 750 mg PO Q8H PRN pain, moderate 07/05/24 #15 tabs polyethylene glycol 3350 17 17 g PO QID #238 grams 07/05/24 gram/dose oral powder (Miralax) Allergies Allergy/AdvReac Type Severity Reaction Status Date / Time No Known Allergies Allergy Verified 07/05/24 18:07 Review of Systems 2 Review of Systems: Yes all other systems are reviewed and are negative Constitutional: Constitutional: Denies fatigue and Denies fever(s) Cardiovascular: Cardiovascular: Denies chest pain and Denies dyspnea Respiratory: Respiratory: Denies cough and Denies dyspnea Gastrointestinal: Gastrointestinal: Reports abdominal pain, Denies constipation, Denies diarrhea, Denies nausea and Denies vomiting Genitourinary: Genitourinary: Denies dysuria Musculoskeletal: Musculoskeletal: Reports back pain, Denies muscle weakness, Denies numbness, Reports radiating pain into limb and Denies tingling Neurologic: Denies numbness and Denies tingling Endocrine: Endocrine: Denies fatigue [facility] Past Medical History Attestation statement: The following information was validated with the patient. Medical History HTN (hypertension) Migraines Surgical History History of delivery Social History Social History Alcohol intake: former Patient Tobacco Use Status: Current everyday Tobacco user Smoked in Last 30 Days: No Use of substances other than those prescribed or required for medical reasons: No Advance Directives: No Advance Directives Information Provided: No Patient : No Gender identity: Female Physical Exam ED Vital Signs: Vital Signs - 24 hr 07/05/24 18:06 07/05/24 21:33 Temperature 96.8 F 98.5 F Pulse Rate 80 87 Respiratory Rate 18 16 Blood Pressure 155/74 H 153/81 H Pulse Oximetry 99 98 Oxygen Delivery Method Room Air BMI result Body Mass Index 36.0 Const Other: Alert well-appearing Orientation/consciousness: patient oriented x3 Resp Effort & Inspection: normal respiratory effort Cardio Other: Normal peripheral perfusion GI Other: abdomen is soft, distended, obese, with mild tenderness across entire lower abdomen without guarding Skin Other: Warm dry no rash Neuro General: patient oriented x3, gait normal, no focal motor deficits and CN's II- XI intact bilaterally Extrem Other: Strength 5/5 bilateral lower extremities with resistance Psych Other: Cooperative Course Course Course Narrative: RME, this is a rapid medical exam performed by Cuong Dunn please refer to primary provider for complete H&P- 54 year old female presents for evaluation of right leg pain, abdominal pain, and back apin. Symptoms started one week ago. Plan for labs, UA Medications Administered Discontinued Medications Generic Name Dose Route Start Last Admin Trade Name Freq PRN Reason Stop Dose Admin Acetaminophen 975 mg 07/05/24 19:36 07/05/24 19:46 Acetaminophen 325 Mg Tablet PO 07/05/24 19:37 975 mg ONCE ONE Administration Medical Decision Making Medical Decision Making [facility] Narrative: 54-year-old female with a history of obesity presents with multiple complaints. Patient states she has had right-sided low back pain with radiation around to the right lower abdomen and down the right lower extremity for months. Associated abdominal distention. Denies nausea, vomiting, diarrhea, constipation or fever. Patient states pain is worse in her abdomen and back with movement. Patient denies new activity heavy lifting or trauma, that could have precipitated her symptoms. Patient denies bowel incontinence, urinary retention, weakness of lower extremities or paresthesia. Patient also states ?I feel something moving in my belly something kicking me I think I am ?. Patient states she has taken a test at home which was negative. Problem: Obesity History: Per patient I have considered the following differential diagnoses: Unexpected , constipation, bowel obstruction, lumbar radiculopathy, cauda equina Plan: In regard to the patient's abdominal pain, she does look objectively distended, however she is not having any active GI symptoms, she denies constipation, and she has had symptoms for months. A bit she is constipated, I see in her chart that she is prescribed psyllium powder. Obtaining a KUB. Screening labs were already obtained and they are completely normal. I also viewed with bedside ultrasound, she is not per my bedside ultrasound, adding on a serum hCG. In regard to the arm back pain, she is having sciatica like symptoms without red flag signs symptoms concerning for cord compression. I have independently reviewed the following tests: Labs: No leukocytosis, not anemic, no electrolyte abnormalities noted, not , urine not in fact KUB Findings: Moderate amount of stool in the colon. No bowel obstruction. No pneumoperitoneum or pneumatosis. No abnormal calcifications. No acute fractures. IMPRESSION: Moderate amount of stool in the colon. No bowel obstruction. Lab Data 07/05/24 18:46 07/05/24 18:46 Labs: Lab Results 07/05/24 07/05/24 Range/Units 18:40 18:46 WBC 10.6 (4.8-10.8) X10*3/uL RBC 4.29 (4.20-5.50) X10*6/uL Hgb 13.0 (12.0-16.0) g/dl Hct 38.3 (37.0-47.0) % MCV 89.3 (80.0-98.0) fL MCH 30.3 (27.0-33.0) pg MCHC 33.9 (31.0-35.0) g/dl RDW 14.1 (11.0-16.0) % Plt Count 226 (160-400) X10*3/uL MPV 12.0 (9.4-12.3) fL Immature Gran % (Auto) 0.6 H (0.0-0.4) % Neut % (Auto) 60.1 (45-73) % Lymph % (Auto) 30.2 (20-40) % [place] % (Auto) 7.8 (2-11) % Eos % (Auto) 0.9 (0-4) % Baso % (Auto) 0.4 (0-2) % Lymph # (Auto) 3.2 (1.2-4.9) X10*3/uL [place] # (Auto) 0.8 (0.1-1.2) X10*3/uL Eos # (Auto) 0.1 (0.0-0.4) X10*3/uL Baso # (Auto) 0.0 (0.0-0.2) X10*3/uL Abs Immat Gran (auto) 0.06 H (0.00-0.03) X10*3/uL Absolute Neuts (auto) 6.4 (2.0-8.3) x10*3/uL Absolute Nucleated RBC 0.000 (0.0-0.012) X10*3/uL Nucleated RBC % (auto) 0.0 (0.0-0.2) /100WBC Sodium 145 (135-145) mmol/L Potassium 4.3 (3.3-5.1) mmol/L Chloride 109 H (96-108) mmol/L Carbon Dioxide 24 (22-29) mmol/L Anion Gap 16 (12-20) BUN 15 (9-16) mg/dL Creatinine 0.81 (0.5-1.4) mg/dL Estim Creat Clear Calc 87.6 Estimated GFR > 60 Random Glucose 99 (60-115) mg/dL Calcium 9.1 (8.4-10.2) mg/dL Total Bilirubin 0.3 (0.0-1.0) mg/dL AST 39 H (5-31) U/L ALT 34 H (0-31) U/L Alkaline Phosphatase 116 (39-117) U/L Total Protein 8.0 (6.5-8.0) g/dL Albumin 4.1 (3.5-5.0) g/dL Lipase 63 (8-78) U/L Beta HCG, Quant < 2 mIU/mL Urine Color Yellow Urine Appearance Clear Urine pH 6.5 (5.0-9.0) Ur Specific [place] <= 1.005 (1.005-1.025) Urine Protein Negative (Neg-Trace) mg/dL Urine Glucose (UA) Negative (Negative) mg/dL Urine Ketones Negative (Negative) mg/dL Urine Blood Negative (Negative) Urine Nitrite Negative (Negative) Ur Leukocyte Esterase Moderate (2+) H (Negative) Urine RBC 0-2 (0-2) /HPF Urine WBC 11-20 H (0-5) /HPF Ur Squamous Epith Cells 3-5 (0-2) /HPF Urine Bacteria Trace (None Seen) Hyaline Casts 0-2 (0-2) /LPF Discharge Plan Discharge Clinical Impression: Constipation, Acute right lumbar radiculopathy Patient Disposition: Home, Self-Care Instructions: Constipation (ED), Lumbar Radiculopathy (ED), Lower Back Exercises (ED) Additional Instructions: All of your labs were normal, the x-ray revealed that you are considerably constipated. See home care instructions. Use the Colace as directed, use the MiraLax as directed, until you clear your current stool burden. You need to stay on a bowel regimen to prevent further episodes of constipation. You are not , we verified this with a blood test. I also looked at your uterus with bedside ultrasound, there is nothing in it. In regard to the back pain you are being treated for lumbar radiculopathy. See home care instructions. Weight loss and exercise are instrumental and preventing further episodes of back pain. Use ibuprofen as directed, this is an anti-inflammatory take it with food. Use the methocarbamol as needed, this is a muscle relaxant. The methocarbamol will cause drowsiness, do not drive or operate machinery while taking this medication. Prescriptions: New docusate sodium [Col-Rite] 100 mg capsule 100 mg PO BID Qty: 14 0RF polyethylene glycol 3350 [Miralax] 17 gram/dose powder 17 g PO QID Qty: 238 0RF methocarbamol 750 mg tablet 750 mg PO Q8H PRN (Reason: pain, moderate) Qty: 15 0RF ibuprofen 600 mg tablet 600 mg PO Q6H PRN (Reason: pain) Qty: 20 0RF No Action Metamucil Fiber Singles 3.4 gram powder in packet 1 packet PO DAILY Qty: 30 11RF Print Language: Montenegrin
[2024-07-05 18:49] LABS: MANUAL DIFF FLAG NO
[2024-07-05 18:50] LABS: Basophils Percent Auto 0.4 % (0-2); Eosinophils Absolute Auto 0.1 X10*3/uL (0.0-0.4); Eosinophils Percent Auto 0.9 % (0-4); Hematocrit 38.3 % (37.0-47.0); Imm Gran Abs Auto 0.06 X10*3/uL (0.00-0.03); Imm Gran Pct Auto 0.6 % (0.0-0.4); Lymphocytes Absolute Auto 3.2 X10*3/uL (1.2-4.9); Lymphocytes Percent Auto 30.2 % (20-40); Mean Corpuscular HGB Conc 33.9 g/dl (31.0-35.0); Mean Corpuscular Hemoglobin 30.3 pg (27.0-33.0); Mean Corpuscular Volume 89.3 fL (80.0-98.0); Monocytes Absolute Auto 0.8 X10*3/uL (0.1-1.2); Monocytes Percent Auto 7.8 % (2-11); Neutrophils Absolute Auto 6.4 x10*3/uL (2.0-8.3); Neutrophils Percent Auto 60.1 % (45-73); Platelet Count 226 X10*3/uL (160-400); Red Blood Count 4.29 X10*6/uL (4.20-5.50); Red Cell Distribution Width 14.1 % (11.0-16.0); White Blood Count 10.6 X10*3/uL (4.8-10.8)
[2024-07-05 18:51] LABS: Appearance Urine Clear; Color Urine Yellow; Glucose Urine UA Negative (Negative); Leukocyte Esterase Urine Moderate (2+) (Negative); Nitrite Urine Negative (Negative); PH 6.5 (5.0-9.0); Specific Gravity - Urine <= 1.005 (1.005-1.025); UMIC TRIGGER UACC YES; Urine Blood Negative (Negative); Urine Ketones Negative (Negative); Urine Protein Negative (Neg-Trace)
[2024-07-05 18:56] LABS: Bacteria Urine Trace (None Seen); Hyaline Casts Urine 0-2 /LPF (0-2); RBC Urine 0-2 /HPF (0-2); UACC Culture Trigger YES
[2024-07-05 19:09] LABS: Alanine Aminotransferase 34 U/L (0-31); Albumin Level 4.1 g/dL (3.5-5.0); Alkaline Phosphatase 116 U/L (39-117); Anion Gap 16 (12-20); Aspartate Amino Transferase 39 U/L (5-31); Bilirubin Total 0.3 mg/dL (0.0-1.0); Blood Urea Nitrogen 15 mg/dL (9-16); Calcium 9.1 mg/dL (8.4-10.2); Carbon Dioxide 24 mmol/L (22-29); Chloride 109 mmol/L (96-108); Creatinine Clr Calc Pharmacy 87.6; Estimated Glomerular Filt Rate > 60; Glucose Random 99 mg/dL (60-115); Lipase 63 U/L (8-78); Potassium 4.3 mmol/L (3.3-5.1); Sodium 145 mmol/L (135-145)
--- NOTE | 2024-07-05 19:32 | PC.NURSE ---
patient requesting Tylenol. BETH Castanon notified.
[2024-07-05] MEDS: Acetaminophen 325 MG TABLET 975 MG PO (19:46)
[2024-07-05 21:02] LABS: HCG Quantitative < 2 mIU/mL
[2024-07-05 21:33] VITALS: BP 153/81; PULSE 87; RESP 16; TEMP 36.9; O2SAT 98
[2024-07-05 23:19] VITALS: BP 153/81; PULSE 87; RESP 16; TEMP 36.9; O2SAT 98
== END 2024-07-05 23:22 | disposition home or self-care (01) ==
PROVIDERS: Physician Assistant; Physician Assistant Medical; Emergency Provider Emergency Medicine Emergency Medical Services; PCP Internal Medicine
DX: K59.00 Constipation, unspecified (principal); M54.16 Radiculopathy, lumbar region; M79.604 Pain in right leg; R10.2 Pelvic and perineal pain; F17.210 Nicotine dependence, cigarettes, uncomplicated; Z79.899 Other long term (current) drug therapy
CPT/HCPCS: 36415; 74018; 80053; 81001; 83690; 84702; 85025; 87086; 99283; 99284

== ENCOUNTER → 2024-07-05 20:49 | Outpatient (BNV) | payer OTHER, SELFPAY | PROVIDERS: Emergency Provider Emergency Medicine Emergency Medical Services; PCP Internal Medicine; Visit Provider Radiology Diagnostic Radiology | DX: K56.41 Fecal impaction (principal) | CPT/HCPCS: 74018 ==

== ENCOUNTER 2024-08-27 08:13 | Outpatient (REF) | payer OTHER, SELFPAY ==
--- OUTSIDE RECORDS SUMMARY | 2024-05-08 20:00 | XMS_ITS | Continuity of Care Document ---
Author Organization [facility] Address [address] [place] [address] Phone Care Team Providers Care Supervisor Soldering Name Role Phone Zach MYERS, RVT, RPVI, [...] Providers Copied on Encounter [facility], [address] [facility] [address] [facility] [address], [place], [id number], [place] tel:[phone] [facility] No Information Apr- 5 Zach MYERS, RVT, RPVI Christopher. [address] [facility] [address], [place], [id number], [place]. tel:[phone] Referring Provider: Gloria Diez MD, [address] [facility] [address], [place], [address]. tel:[phone] Office/Outpt E&M Established [address] [facility] [place] & [place] [facility], [address] [place] [address] Dr Angela [address], [id number], [place] tel:[phone] CVR - [facility] Venous insufficiency (chronic) (peripheral) 5 Zach MYERS RVT, GEORGE White. [address] [place] [address] 302, [place], [id number], [place]. tel:[phone] Referring Provider: Gloria Diez MD, [address] [place] [address] Suite [facility], [place], [address]. tel:[phone] [facility], [address] [place] [address] Dr Angela 1000[facility] [place], [id number], [place] tel:[phone] [facility] Chronic venous hypertension (idiopathic) with other complications of bilateral lower extremity 5 Zach MYERS RVT, GEORGE White. [address] [place] [address], [address], [place], [id number], [place]. tel:[phone] Referring Provider: Gloria Diez MD, [address] [place] [address] Suite [facility], [place], [address]. tel:[phone] [facility], [address] [place] [address] Dr Angela 1000Suite [place], [id number], [place] tel:[phone] CVR - [facility] Encounter for follow-up examination after completed treatment for conditions other than malignant neoplasmPain in right leg 5 Zach MYERS RVT, GEORGE White. [address] [place] [address], [address], [place], [id number], [place]. tel:[phone] Referring Provider: Gloria Diez MD, [address] [place] [address] [address], [place], [address]. tel:[phone] [facility], [address] [place] [address] Dr Angela 1000Suite [place], [id number], [place] tel:[phone] [facility] Encounter for follow-up examination after completed treatment for conditions other than malignant neoplasmChron ic venous hypertension (idiopathic) with other complications of bilateral lower extremity Feb-0 5 Zach MYERS RVT, GEORGE White. [address] [facility], [address], [facility] [place], [id number], [place]. tel:[phone] Referring Provider: Gloria Diez MD, [address] [place] [address] [address], [place], [address]. tel:[phone] [facility], [address] [place] [address] Dr Angela 1000Suite [place], [id number], [place] tel:[phone] [facility] [place] Varicose veins of right lower extremity with other complications b-0 5 Jasmina Cade. [address] [place] [address], [facility] [place], [id number], [place]. tel:[phone] Referring Provider: Gloria Diez MD, [address] [place] [address] [address], [place], [address]. tel:[phone] [facility], [address] [place] [address] Dr Angela 1000Suite [place], [id number], [place] tel:[phone] [facility] [place] Varicose veins of right lower extremity with other complications Feb-0 5 Zach MYERS RVT, GEORGE White. [address] [place] [address] [address], [place], [id number], [place]. tel:[phone] Referring Provider: Gloria Diez MD, [address] [place] [address] [address], [place], [address]. tel:[phone] [facility], [address] [place] [address] Dr Angela 1000[address] 1000[place], [id number], [place] tel:[phone] [facility] [place] Encounter for follow-up examination after completed treatment for conditions other than malignant neoplasmPain in left leg b0 5 Zach MYERS RVT, GEORGE White. [address] [facility] [address], [facility] [place], [id number], [place]. tel:[phone] Referring Provider: Gloria Diez MD, [address] [place] [address] [address], [place], [address]. tel:[phone] [facility], [address] [place] [address] Dr Angela 1000Suite [place], [id number], [place] tel:[phone] [facility] [place] Varicose veins of left lower extremity with other complications 5 Deon Kirkpatrick. [address] [place] [address], [address], [facility] [place], [place], [id number], [place]. tel:[phone] Referring Provider: Gloria Diez MD, [address] [place] [address] [address], [place], [address]. tel:[phone] [facility], [address] [place] [address] 1000Suite 1000[place], [id number], [place] tel:[phone] [facility] Encounter for follow-up examination after completed treatment for conditions other than malignant neoplasmChron ic venous hypertension (idiopathic) with other complications of left lower extremity 5 Zach MYERS RVT, GEORGE White. [address] [place] [address], [address], [facility] [place], [id number], [place]. tel:[phone] Referring Provider: Gloria Diez MD, [address] [place] [address] [address], [place], [address]. tel:[phone] [facility], [address] [place] [address] [address] 1000[place], [id number], [place] tel:[phone] [facility] [place] Varicose veins of left lower extremity with other complications 5 Zach MYERS RVT, GEORGE White. [address] [place] [address], [address], [facility] [place], [id number], [place]. tel:[phone] Referring Provider: Gloria Diez MD, [address] [place] [address] [address], [place], [address]. tel:[phone] Office/Outpt E&M Established 15 M[place]- [place] & [place] [facility], [address] [place] [address] Dr Angela 1000Suite [place], [id number], [place] tel:[phone] [facility] Lymphedema, not elsewhere classifiedHer editary lymphedemaLoc alized edemaCramp and spasmRestless legs syndromeVenou s insufficiency (chronic) (peripheral) 4 Zach MYERS RVT, GEORGE White. [facility], [address], [place], [id number], [place]. tel:[phone] Referring Provider: Gloria Diez MD, [address] [place] [address] [address], [place], [address]. tel:[phone] [facility], [address] [place] [address] Dr Angela 1000[facility] [place], [id number], [place] tel:[phone] [facility] Chronic venous hypertension (idiopathic) with other complications of bilateral lower extremity 4 Zach MYERS RVT, GEORGE White. [address] [place] [address], [address], [place], [id number], [place]. tel:[phone] Referring Provider: Gloria Diez MD, [address] [place] [address] [address], [place], [address]. tel:[phone] [facility], [address] [place] [address] Dr Angela 1000[facility] [place], [id number], [place] tel:[phone] [facility] Encounter for follow-up examination after completed treatment for conditions other than malignant nePain in right lower leg 4 Zach MYERS RVT, GEORGE White. [address] [place] [address], [address], [place], [id number], [place]. tel:[phone] Referring Provider: Gloria Diez MD, [address] [place] [address] [address], [place], [address]. tel:[phone] [facility], [address] [place] [address] Dr Angela 1000[address] 1000[place], [id number], [place] tel:[phone] [facility] Varicose veins of right lower extremity with other complications Nov-2 - 4 Zach MYERS RVT, GEORGE White. [address] [place] [address], [facility] [place], [id number], [place]. tel:[phone] Referring Provider: Gloria Diez MD, [address] [facility] [address], [place], [address]. tel:[phone] Office/Outpt E&M Established 15 Mins- [place] & [place] [facility], [address] [place] [address] Dr Angela 1000[facility] [place], [id number], [place] tel:[phone] [facility] Chronic venous hypertension (idiopathic) without complications of bilateral lower extremityRest less legs syndromeVenou s insufficiency (chronic) (peripheral)L ymphedema, not elsewhere classifiedHer editary lymphedema Sep-0 4 Zach MYERS RVT, GEORGE White. [address] [place] [address], [facility] [place], [id number], [place]. tel:[phone] [facility], [address] [place] [address] Dr Angela 1000[facility] [place], [id number], [place] tel:[phone] [facility] Chronic venous hypertension (idiopathic) with other complications of bilateral lower extremity Sep-0 4 Zach MYERS RVT, GEORGE White. [address] [place] [address], [facility] [place], [id number], [place]. tel:[phone] Referring Provider: Christopher Serrano MD, RVT, GEORGE, [address] [place] [address], [place], [address] . tel:[phone] [facility], [address] [place] [address] Dr Angela 1000[facility] [place], [id number], [place] tel:[phone] CVR [facility] Encounter for follow-up examination after completed treatment for conditions other than malignant neChronic venous hypertension (idiopathic) with other complications of left lower extremity 4 Zach MYERS RVT, RPVI Robert. [address] [facility], [address], [place], [id number], [place]. tel:[phone] Referring Provider: Christopher Serrano MD, RVT, GEORGE, [address] [facility] [address], [place], [address] . tel:[phone] [facility], [address] [place] [address] [address], [id number], [place] tel:[phone] CVR - [facility] Varicose veins of left lower extremity with other complications 4 Zach MYERS RVT, RPVI Robert. [address] [place] [address], [address], [place], [id number], [place]. tel:[phone] Referring Provider: Gloria Diez MD, [address] [place] [address] [address], [place], [address]. tel:[phone] [facility], [address] [place] [address] [address] 1000[place], [id number], [place] tel:[phone] CVR - [facility] Encounter for follow-up examination after completed treatment for conditions other than malignant nePain in right leg 4 Zach MYERS RVT, RPVI Robert. [address] [facility], [address], [place], [id number], [place]. tel:[phone] Referring Provider: Gloria Diez MD, [facility] [address], [place], [address]. tel:[phone] [facility], [address] [place] [address] Dr [address] 1000[place], [id number], [place] tel:[phone] [facility] - [place] Encounter for follow-up examination after completed treatment for conditions other than malignant neoplasmVaric ose veins of right lower extremity with pain 4 Zach MYERS RVT, RPVI Robert. [address] [facility], [address], [place], [id number], [place]. tel:[phone] Referring Provider: Christopher Serrano MD, RVT, RPBRUNA, [address] [place] [address], [place], [address] . tel:[phone] [facility], [address] [place] [address] Dr Angela 1000Suite 1000[place], [id number], tel:[phone] CVR - [place] Varicose veins of right lower extremity with other complications 4 Jasmina Cade. [address] [place] [address], [place], [id number], [place]. tel:[phone] [facility], [address] [place] [address] Dr Angela 1000[facility] 1000[place], [id number], [place] tel:[phone] CVR - [place] [facility] [place] Chronic venous hypertension (idiopathic) with inflammation of right lower extremity 4 Zach MYERS, KRISTINA, RPBRUNA White. [address] [place] [address], [place], [id number], [place]. tel:[phone] Referring Provider: Christopher Serrano MD, KRISTINA, RPBRUNA, [address] [place] [address], [place], [address] . tel:[phone] [facility], [address] [place] [address] Dr Angela 1000[facility] 1000[place], [id number], [place] tel:[phone] CVR - [place] [facility] [place] No Information 4 Zach MYERS RVT, RPBRUNA White. [address] [place] [address], [place], [id number], [place]. tel:[phone] Offic/outpt E&m Estab 5 Min Trial- Telemedicine [place] & [place] [facility], [address] [place] [address] Dr Angela 1000[facility] 1000[place], [id number], tel:[phone] CVR - [place] [facility] [place] Venous insufficiency (chronic) (peripheral)C ramp and spasmRestless legs syndrome 4 Deon Kirkpatrick. [address] [place] [address], [place], [id number], [place]. tel:[phone] Office/Oupt E&M New Pt 45 Mins [facility], [address] [place] [address] [facility] 1000[facility] 1000[place], [id number], tel:[phone] CVR - [facility] Varicose veins of bilateral lower extremities with other complications Pain in left lower legPain in right legPain in left legRestless legs syndromeCramp and spasm 4 Zach MYERS, KRISTINA, GEORGE White. [address] [place] [address], [place], [id number], [place]. tel:[phone] Referring Provider: Gloria Diez MD, [address] [facility] [address], [place], [address]. tel:[phone] [facility], [address] [place] [address] [facility] 1000[facility] 1000[place], [id number], [place] tel:[phone] [facility] Chronic venous hypertension (idiopathic) with other complications of bilateral lower extremity 4 Zach MYERS, KRISTINA, GEORGE White. [address] [place] [address], [place], [id number], [place]. tel:[phone] Referring Provider: Christopher Serrano MD, RVT, GEORGE, [address] [place] [address], [place], [address] . tel:[phone] Family History Family Member Type Diagnosis Age [...] conservative measure Related to Cramp and spasm Pre and post instruc tions reviewed and provided Related to Varicose veins of bilateral lower extremities with other complications Patient education booklet given Related to Varicose veins of bilateral lower extremities with other complications Lifestyle education Related to B zahira mass index (BMI) 28.0-28.9, adult Giving Encouragement to exercise Related to Body mass index (BMI) 28.0-28.9, adult Diet education Related to Body mass index (BMI) 28.0-28.9, adult Assessments Type Assessment Date No Information Patient Care Teams Name Effective Dates (start - stop) Status Members No Information
[2024-08-27 08:42] LABS: MANUAL DIFF FLAG NO
[2024-08-27 08:48] LABS: Hemoglobin A1C 135.0762 umol/L; Total Hemoglobin (HGBA1C) 3404.6349 umol/L
[2024-08-27 08:50] LABS: Hematocrit 39.0 % (37.0-47.0); Hemoglobin 12.7 g/dl (12.0-16.0); Imm Gran Abs Auto 0.04 X10*3/uL (0.00-0.03); Imm Gran Pct Auto 0.5 % (0.0-0.4); Lymphocytes Absolute Auto 3.1 X10*3/uL (1.2-4.9); Mean Corpuscular HGB Conc 32.6 g/dl (31.0-35.0); Mean Corpuscular Hemoglobin 29.1 pg (27.0-33.0); Mean Corpuscular Volume 89.2 fL (80.0-98.0); NRBC Abs Auto 0.000 X10*3/uL (0.0-0.012); NRBC Pct Auto 0.0 /100WBC (0.0-0.2); Platelet Count 218 X10*3/uL (160-400); Red Blood Count 4.37 X10*6/uL (4.20-5.50); White Blood Count 8.0 X10*3/uL (4.8-10.8)
[2024-08-27 09:26] LABS: Alanine Aminotransferase 40 U/L (0-31); Albumin Level 4.0 g/dL (3.5-5.0); Alkaline Phosphatase 111 U/L (39-117); Anion Gap 9 (12-20); Aspartate Amino Transferase 34 U/L (5-31); Blood Urea Nitrogen 13 mg/dL (9-16); Calcium 9.4 mg/dL (8.4-10.2); Carbon Dioxide 27 mmol/L (22-29); Chloride 111 mmol/L (96-108); Cholesterol 183 mg/dL (<200); Estimated Glomerular Filt Rate > 60; HDL Cholesterol 51 mg/dL (>40); Potassium 4.4 mmol/L (3.3-5.1); Sodium 143 mmol/L (135-145); Total Protein 7.4 g/dL (6.5-8.0); Triglycerides 64 mg/dL (<150)
[2024-08-27 09:46] LABS: Thyroid Stimulating Hormone 2.47 uIU/mL (0.32-4.0)
== END 2024-08-27 08:14 | disposition home or self-care (01) ==
LOC: HO.LAB 08:13
PROVIDERS: PCP Internal Medicine; Visit Provider Internal Medicine
DX: I10 Essential (primary) hypertension (principal); R06.02 Shortness of breath; M54.50 Low back pain, unspecified; R63.5 Abnormal weight gain
CPT/HCPCS: 36415; 80053; 80061; 83036; 84443; 85025

== ENCOUNTER 2024-11-13 08:53 | Outpatient (REF) | payer OTHER, SELFPAY | END 2024-11-13 08:54 | disposition home or self-care (01) | LOC: HO.LNP 08:53 | PROVIDERS: PCP Internal Medicine; Visit Provider Advanced Practice Midwife | DX: Z01.419 Encounter for gynecological examination (general) (routine) without abnormal findings (principal); Z11.51 Encounter for screening for human papillomavirus (HPV); R10.20 Pelvic and perineal pain unspecified side; E66.812 Obesity, class 2; Z87.42 Personal history of other diseases of the female genital tract; Z68.37 Body mass index [BMI] 37.0-37.9, adult | CPT/HCPCS: 87626; 88175; 99396 ==

== ENCOUNTER 2024-11-13 08:53 | Outpatient (AMB) | payer OTHER, SELFPAY ==
[2024-11-13 09:09] VITALS: BP 140/84; BMI 37.7
--- NOTE | 2024-11-13 09:09 | MHC.OFFVIS ---
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 She is not having any issues except that she has been having intermittent abdominal pain that comes and goes randomly she did experience at last night for about 2 minutes the just came in a feels like a internal control specialist her abdomen. She is bothered by ?being fat she has gained a lot a weight and she has never been this heavy accept for 1 other time she says she lost the weight that time by eating good an exercising and also she had not gotten a period at that time and she was given a medicine to bring her period on she says her last period was in August she is perimenopausal. She is not sexually active and has no interest in being sexually active. She lost her job a month ago because the place close down and she has a applied for unemployment to pay her bills and her rent and her car payment. She says she is not on any medicines for blood pressure. She has a mammogram on Monday. She saw her primary in July and we will be seeing her again next year. FOR[facility]LY [facility], [facility] Medical History HTN (hypertension) Migraines Surgical History History of delivery Social History Alcohol intake: former Patient Tobacco Use Status: Current everyday Tobacco user Gender identity: Female Female Reproductive History Menstrual control method: none Total pregnancies: 2 Full term: 1 History of abnormal pap smear: Yes (2019,abn, 2011 [facility]) Physical Exam Vital Signs: BMI result Body Mass Index 37.7 Const General: healthy appearing, comfortable, no acute distress, well developed and alert Nutritional Appearance: average body habitus and obese Orientation/consciousness: patient oriented x3 Limitations: no limitations HEENT Head: Yes normocephalic Neck Neck: Yes normal visual inspection Chest Chest palpation & inspection: normal inspection of the chest Breast/axilla inspection: normal inspection of the breasts and normal inspection of the axillae Breast/axilla palpation: normal palpation of the breasts and normal palpation of the axillae Resp Effort & Inspection: normal respiratory effort GI Inspection: Yes normal to inspection, No Abdominal wall edema and No distended Palpation (GI): Soft to palpation and nontender Other: Adipose limits exam abdomen is nontender the patient was able to pinpoint an area on the right-hand side where she did experience the pain. Speculum exam cervix multiparous pink smooth with very normal-appearing whitish scant discharge Pap smear done secondary to discrepant history in chart about whether the 2019 Pap was normal or abnormal there was no ability to look that up anymore in the system The bimanual exam yielded limited results nontender but limited by adipose tissue.. General: Yes bladder normal to palpation and Yes other External Female Exam: normal external appearance and normal appearance of the urethra Speculum Exam - Vagina: normal appearance of the vagina, normal palpation and normal vaginal discharge Speculum Exam - Cervix: normal appearance of the cervix, normal palpation and nontender Bimanual exam- vagina & uterus: normal bimanual exam, normal palpation, bladder normal to palpation, normal palpation, uterine mobility normal, No Cervical tenderness present and no cervical motion tenderness Bimanual Exam- Adnexa, other: normal adnexae, normal (Excellent tone with Kegel,) and No adnexal tenderness Neuro General: patient oriented x3 Assessment & Plan Assessment & Plan (1) Encounter for annual routine gynecological examination: Code(s): Z01.419 - Encounter for gynecological examination (general) (routine) without abnormal findings Category: Medical (2) Hx of abnormal cervical Pap smear: Comment: 08/15/2022 Pap is negative with negative HPV. Code(s): Z87.42 - Personal history of other diseases of the female genital tract Category: Medical (3) Pelvic pain: Comment: Random, sporadic, we will obtain pelvic ultrasound. Code(s): R10.2 - Pelvic and perineal pain Category: Medical (4) Obesity, Class II, BMI 35-39.9: Code(s): E66.812 - Obesity, class 2 Category: Medical Plan -----Discussed in this visit the following: healthy balanced diet, regular and consistent exercise, getting recommended health screens, doing the best she can for her particular health concerns, kegel exercises, pap smear screening and followup recommendations, mammography screening and SBE, normal changes in cycles in her life stage--- Discussed kyle menopausal changes and the variation in menses as 1 enters the menopausal years and parameters. We will get pelvic ultrasound to explore if there is anything legal service specialist related that could explain her random pain. Also discussed often the gastrointestinal issues can cause various pains patient denies constipation. There were medicines for constipation prescribed however she says she is not taking anything. Discussed the challenges of losing weight especially with the stress of losing ones job in the financial worries suggested using this opportunity to become more active and focus on trying to eat well and if there are any other concerns with her blood pressure she should reach out to her primary. . We will see her after the ultrasound to review findings. Orders: Orders US pelvic and transvaginal Today R10.2 - Pelvic and perineal pain Pap Smear Today Z87.42 - Personal history of other diseases of the female genital tract Coding Level of Care Code Est Pt Prev Care 40-64y(85852) Diagnoses Encounter for annual routine gynecological examination Z01.419 Hx of abnormal cervical Pap smear Z87.42 Pelvic pain R10.2 Obesity, Class II, BMI 35-39.9 E66.812
== END 2024-11-13 10:31 | disposition home or self-care (01) ==
LOC: HO.HWS 08:53
PROVIDERS: PCP Internal Medicine; Visit Provider Advanced Practice Midwife
DX: Z01.419 Encounter for gynecological examination (general) (routine) without abnormal findings (principal); Z87.42 Personal history of other diseases of the female genital tract; R10.20 Pelvic and perineal pain unspecified side; E66.812 Obesity, class 2
CPT/HCPCS: 99396; 99459

== ENCOUNTER 2024-11-16 09:15 | Outpatient (REF) | payer OTHER, SELFPAY | END 2024-11-16 09:16 | disposition home or self-care (01) | LOC: HO.MAMMO 09:15 | PROVIDERS: PCP Internal Medicine; Visit Provider Internal Medicine | DX: Z12.31 Encounter for screening mammogram for malignant neoplasm of breast (principal) | CPT/HCPCS: 77063; 77067 ==

== ENCOUNTER → 2024-11-16 10:15 | Outpatient (BNV) | payer OTHER, SELFPAY | PROVIDERS: PCP Internal Medicine; Visit Provider Internal Medicine | DX: Z12.31 Encounter for screening mammogram for malignant neoplasm of breast (principal) | CPT/HCPCS: 77063; 77067 ==

== ENCOUNTER 2024-12-25 15:18 | Emergency (ER) | payer OTHER, SELFPAY ==
--- OUTSIDE RECORDS SUMMARY | 2024-05-08 19:00 | XMS_ITS | Continuity of Care Document ---
Author Organization [facility] Address [address] [place] [address] Phone Care Team Providers Care Eyeletter Name Role Phone Zach MYERS, RVT, RPVI, [...] Providers Copied on Encounter [facility], [address], [place], [id number], [place] tel:[phone] [facility] No Information Apr- 5 Zach MYERS, RVT, RPVI Christopher. [address], [place], [id number], [place]. tel:[phone] Referring Provider: Gloria Diez MD, [address] [facility], [place], [address]. tel:[phone] Office/Outpt E&M Established [address] [facility]- [place] & [place] [facility], [address] [place] [address] Dr Angela [address], [id number], [place] tel:[phone] [facility] Venous insufficiency (chronic) (peripheral) 5 Zach MYERS RVT, GEORGE White. [address] [place] [address] 302, [place], [id number], [place]. tel:[phone] Referring Provider: Gloria Diez MD, [address] [place] [address] Suite [facility], [place], [address]. tel:[phone] [facility], [address] [place] [address] Dr Angela 1000[facility] [place], [id number], [place] tel:[phone] [facility] Chronic venous hypertension (idiopathic) with other complications of bilateral lower extremity 5 Zach MYERS RVT, GEORGE White. [address] [place] [address], [address], [place], [id number], [place]. tel:[phone] Referring Provider: Gloria Diez MD, [address] [place] [address] Suite [facility], [place], [address]. tel:[phone] [facility], [address] [place] [address] Dr Angela 1000Suite [place], [id number], [place] tel:[phone] [facility] Encounter for follow-up examination after completed treatment for conditions other than malignant neoplasmPain in right leg 5 Zach MYERS RVT, GEORGE White. [address] [place] [address], [address], [place], [id number], [place]. tel:[phone] Referring Provider: Gloria Diez MD, [address] [place] [address] [address], [place], [address]. tel:[phone] [facility], [address] [place] [address] Dr Angela 1000Suite [place], [id number], [place] tel:[phone] [facility] [place] [facility] [place] Encounter for follow-up examination after completed treatment for conditions other than malignant neoplasmChron ic venous hypertension (idiopathic) with other complications of bilateral lower extremity Feb-0 5 Zach MYERS RVT, GEORGE White. [address] [facility], [address], [facility] [id number], [place]. tel:[phone] Referring Provider: Gloria Diez MD, [address] [place] [address] [address], [place], [address]. tel:[phone] [facility], [address] [place] [address] Dr Angela 1000Suite [place], [id number], [place] tel:[phone] [facility] [place] [facility] [place] Varicose veins of right lower extremity with other complications b-0 5 Jasmina Cade. [address] [place] [address], [facility] [place] [id number], [place]. tel:[phone] Referring Provider: Gloria Diez MD, [address] [place] [address] [address], [place], [address]. tel:[phone] [facility], [address] [place] [address] Dr Angela 1000Suite [place], [id number], [place] tel:[phone] [facility] [place] [facility] [place] Varicose veins of right lower extremity with other complications Feb-0 5 Zach MYERS RVT, GEORGE White. [address] [place] [address] [address], [place], [id number], [place]. tel:[phone] Referring Provider: Gloria Diez MD, [address] [place] [address] [address], [place], [address]. tel:[phone] [facility], [address] [place] [address] Dr Angela 1000[address] 1000[place], [id number], [place] tel:[phone] [facility] [place] [facility] [place] Encounter for follow-up examination after completed treatment for conditions other than malignant neoplasmPain in left leg b0 5 Zach MYERS RVT, GEORGE White. [address] [facility] [address], [facility] [place], [id number], [place]. tel:[phone] Referring Provider: Gloria Diez MD, [address] [place] [address] [address], [place], [address]. tel:[phone] [facility], [address] [place] [address] Dr Angela 1000Suite [place], [id number], [place] tel:[phone] [facility] [place] [facility] [place] Varicose veins of left lower extremity with other complications 5 Deon Kirkpatrick. [address] [place] [address], [address], [facility] [place], [id number], [place]. tel:[phone] Referring Provider: Gloria Diez MD, [address] [place] [address] [address], [place], [address]. tel:[phone] [facility], [address] [place] [address] 1000Suite 1000[place], [id number], [place] tel:[phone] [facility] [place] [facility] [place] Encounter for follow-up examination after completed treatment for conditions other than malignant neoplasmChron ic venous hypertension (idiopathic) with other complications of left lower extremity 5 Zach MYERS RVT, GEORGE White. [address] [place] [address], [address], [facility] [place], [id number], [place]. tel:[phone] Referring Provider: Gloria Diez MD, [address] [place] [address] [address], [place], [address]. tel:[phone] [facility], [address] [place] [address] [address] 1000[place], [id number], [place] tel:[phone] [facility] [place] [facility] [place] Varicose veins of left lower extremity with other complications 5 Zach MYERS RVT, GEORGE White. [address] [place] [address], [address], [facility] [place], [id number], [place]. tel:[phone] Referring Provider: Gloria Diez MD, [address] [place] [address] [address], [place], [address]. tel:[phone] Office/Outpt E&M Established 15 [place]- [place] & [place] [facility] [place] [facility], [address] [place] [address] Dr Angela 1000Suite [place], [id number], [place] tel:[phone] [facility] Lymphedema, not elsewhere classifiedHer editary lymphedemaLoc alized edemaCramp and spasmRestless legs syndromeVenou s insufficiency (chronic) (peripheral) 4 Zach MYERS RVT, GEORGE White. [facility] [facility], [address], [place], [id number], [place]. tel:[phone] Referring Provider: Gloria Diez MD, [address] [place] [address] [address], [place], [address]. tel:[phone] [facility], [address] [place] [address] Dr Angela 1000[facility] [place], [id number], [place] tel:[phone] [facility] Chronic venous hypertension (idiopathic) with other complications of bilateral lower extremity 4 Zach MYERS RVT, GEORGE White. [address] [place] [address], [address], [place], [id number], [place]. tel:[phone] Referring Provider: Gloria Diez MD, [address] [place] [address] [address], [place], [address]. tel:[phone] [facility], [address] [place] [address] Dr Angela 1000[facility] [place], [id number], [place] tel:[phone] [facility] Encounter for follow-up examination after completed treatment for conditions other than malignant nePain in right lower leg 4 Zach MYERS RVT, GEORGE White. [address] [place] [address], [address], [place], [id number], [place]. tel:[phone] Referring Provider: Gloria Diez MD, [address] [place] [address] [address], [place], [address]. tel:[phone] [facility], [address] [place] [address] Dr Angela 1000Suite 1000[place], [id number], [place] tel:[phone] [facility] Varicose veins of right lower extremity with other complications Nov-2 - 4 Zach MYERS RVT, GEORGE White. [address] [place] [address], [facility] [place], [id number], [place]. tel:[phone] Referring Provider: Gloria Diez MD, [address] [facility] [address], [place], [address]. tel:[phone] Office/Outpt E&M Established 15 [place]- [place] & [place] [facility], [address] [place] [address] Dr Angela 1000[facility] [place], [id number], [place] tel:[phone] [facility] Chronic venous hypertension (idiopathic) without complications of bilateral lower extremityRest less legs syndromeVenou s insufficiency (chronic) (peripheral)L ymphedema, not elsewhere classifiedHer editary lymphedema Sep-0 4 Zach MYERS RVT, GEORGE White. [address] [place] [address], [facility] [place], [id number], [place]. tel:[phone] [facility], [address] [place] [address] Dr Angela 1000[facility] [place], [id number], [place] tel:[phone] [facility] Chronic venous hypertension (idiopathic) with other complications of bilateral lower extremity Sep-0 4 Zach MYERS RVT, GEORGE White. [address] [place] [address], [facility] [place], [id number], [place]. tel:[phone] Referring Provider: Christopher Serrano MD, RVT, GEORGE, [address] [place] [address], [place], [address] . tel:[phone] [facility], [address] [place] [address] Dr Angela 1000[facility] [place], [id number], [place] tel:[phone] [facility]R [facility] Encounter for follow-up examination after completed treatment for conditions other than malignant neChronic venous hypertension (idiopathic) with other complications of left lower extremity 4 Zach MYERS RVT, RPVI Robert. [address] [facility], [address], [place], [id number], [place]. tel:[phone] Referring Provider: Christopher Serrano MD, RVT, GEORGE, [address] [facility] [address], [place], [address] . tel:[phone] [facility], [address] [place] [address] [address] 1000[place], [id number], [place] tel:[phone] [facility] - [facility] Varicose veins of left lower extremity with other complications 4 Zach MYERS RVT, RPVI Robert. [address] [place] [address], [address], [place], [id number], [place]. tel:[phone] Referring Provider: Gloria Diez MD, [address] [place] [address] [address], [place], [address]. tel:[phone] [facility], [address] [place] [address] [address]Suite 1000[place], [id number], [place] tel:[phone] [facility] Encounter for follow-up examination after completed treatment for conditions other than malignant nePain in right leg 4 Zach MYERS RVT, RPVI Robert. [address] [facility], [address], [place], [id number], [place]. tel:[phone] Referring Provider: Gloria Diez MD, [facility] [address], [place], [address]. tel:[phone] [facility], [address] [place] [address] Dr [address] 1000[place], [id number], [place] tel:[phone] [facility] [place] [facility] [place] Encounter for follow-up examination after completed treatment for conditions other than malignant neoplasmVaric ose veins of right lower extremity with pain 4 Zach MYERS RVT, RPVI Robert. [address] [facility], [address], [place], [id number], [place]. tel:[phone] Referring Provider: Christopher Serrano MD, RVT, RPBRUNA, [address] [place] [address], [place], [address] . tel:[phone] [facility], [address] [place] [address] Dr Angela 1000Suite 1000[place], [id number], tel:[phone] [facility] [place] Varicose veins of right lower extremity with other complications 4 Jasmina Cade. [address] [place] [address], [place], [id number], [place]. tel:[phone] [facility], [address] [place] [address] Dr Angela 1000[facility] 1000[place], [id number], [place] tel:[phone] [facility] [place] Chronic venous hypertension (idiopathic) with inflammation of right lower extremity 4 Zach MYERS, KRISTINA, RPBRUNA White. [address] [place] [address], [place], [id number], [place]. tel:[phone] Referring Provider: Christopher Serrano MD, KRISTINA, RPBRUNA, [address] [place] [address], [place], [address] . tel:[phone] [facility], [address] [place] [address] Dr Angela 1000[facility] 1000[place], [id number], [place] tel:[phone] [facility] [place] No Information 4 Zach MYERS RVT, RPBRUNA White. [address] [place] [address], [place], [id number], [place]. tel:[phone] Offic/outpt E&m Estab 5 Min Trial- Telemedicine [place] & [place] [facility], [address] [place] [address] Dr Angela 1000[facility] 1000[place], [id number], tel:[phone] [facility] [place] Venous insufficiency (chronic) (peripheral)C ramp and spasmRestless legs syndrome 4 Deon Kirkpatrick. [address] [place] [address], [place], [id number], [place]. tel:[phone] Office/Oupt E&M New Pt 45 Mins [facility], [address] [place] [address] [facility] 1000[facility] 1000[place], [id number], tel:[phone] [facility] - [facility] Varicose veins of bilateral lower extremities with other complications Pain in left lower legPain in right legPain in left legRestless legs syndromeCramp and spasm 4 Zach MYERS, KRISTINA, GEORGE White. [address] [place] [address], [place], [id number], [place]. tel:[phone] Referring Provider: Gloria Diez MD, [address] [facility] [address], [place], [address]. tel:[phone] [facility], [address] [place] [address] [facility] 1000[facility] 1000[place], [id number], [place] tel:[phone] [facility] Chronic venous hypertension (idiopathic) with other complications of bilateral lower extremity 4 Zach MYERS, KRISTINA, GEORGE White. [address] [place] [address], [place], [id number], [place]. tel:[phone] Referring Provider: Christopher Serrano MD, RVT, GEORGE, [address] [place] [address], [place], [address] . tel:[phone] Family History Family Member Type Diagnosis Age At Onset No Information Payers Payer name Insurance type Covered alliance party ID Authoriza tion(s) No Information Social History Type Description Quantity Date Captured Comments Sex Female Smoking Status No Information Chief Complaint And Reason For Visit No Information Reason For Referral Reason For Referral No Information Plan Of Treatment Date Type Action Status Goal Diet education completed Goal Tobacco cessation counseling completed Goal Tobacco cessation counseling completed Goal Diet education completed Goal Tobacco cessation counseling completed Goal Diet education completed Goal Tobacco cessation counseling completed Goal Diet education completed Goal Tobacco cessation counseling completed Referral Ordered: Weight management: Referral to [...] Information Instructions Date Instruction Additional Infor rukhsana Diet education Related to Body mass index (BMI) 28.0-28.9, adult Giving Encouragement to exercise Related to Body mass index (BMI) 28.0-28.9, adult Lifestyle education Related to B zahira mass index (BMI) 28.0-28.9, adult Compression stocking usage as conservative measure Related to Venous insufficiency (chronic) (peripheral) Patient education booklet given Related to Venous insufficiency (chronic) (peripheral) Lifestyle [...] conservative measure Related to Cramp and spasm Patient education booklet given Related to Varicose veins of bilateral lower extremities with other complications Pre and post instruc tions reviewed and provided Related to Varicose veins of bilateral lower extremities with other complications Diet education Related to Body mass index (BMI) 28.0-28.9, adult Giving Encouragement to exercise Related to Body mass index (BMI) 28.0-28.9, adult Lifestyle education Related to B zahira mass index (BMI) 28.0-28.9, adult Assessments Type Assessment Date No Information Patient Care Teams Name Effective Dates (start - stop) Status Members No Information
[2024-12-25 15:24] VITALS: BP 181/88; PULSE 71; RESP 18; TEMP 36.7; O2SAT 100; BMI 37.1
--- NOTE | 2024-12-25 15:25 | ED.GENADULT ---
HPI - General Adult General Chief complaint: General Medical Stated complaint: right leg, left arm pain Time Seen by Provider: 12/25/24 16:04 Source: patient, RN notes reviewed and old records reviewed Mode of arrival: ambulatory Limitations: no limitations History of Present Illness ED Provider: Mona ALFARO narrative: 54-year-old female who denies any past medical history presents for evaluation of pain in her joints. She states that 2 weeks ago she woke up with pain in both her shoulders and her right hip/ groin. She denies any injury, denies any heavy lifting or falls. She reports that she has tried Motrin and Tylenol without any improvement in his symptoms her pain does not radiate. She denies any fevers, chills, cough, chest pain, shortness of breath, abdominal pain, nausea vomiting. she reports that her mother has a history of arthritis but she is not sure which type. She states that her aunt has a history of lupus Related Data Previous Rx's ?Medication ?Instructions ?Recorded prednisone 20 mg tablet 40 mg (2 x 20 mg) PO DAILY #10 tabs 12/25/24 Allergies Allergy/AdvReac Type Severity Reaction Status Date / Time No Known Allergies Allergy Verified 12/25/24 15:28 Review of Systems Constitutional: Constitutional: Denies body ache(s), Denies chills, Denies fever(s) and Denies headache(s) Eyes: Eyes: Denies blurry vision, Denies floaters, Denies irritation and Denies itchy eyes ENT: Denies vertigo and Denies headache(s) Cardiovascular: Cardiovascular: Denies chest pain Gastrointestinal: Gastrointestinal: Denies abdominal pain, Denies nausea and Denies vomiting Musculoskeletal: Musculoskeletal: Reports arthralgias, Denies joint swelling and Reports limited range of motion Integumentary/Breasts: Skin/Breast: Denies rash Neurologic: Denies vertigo and Denies headache(s) Psychiatric: Psychiatric: Denies anxiety Allergic/Immunologic: Allergic/Immunologic: Denies itchy eyes PMFSH Past Medical History Medical History HTN (hypertension) Migraines Surgical History History of delivery Social History Social History Alcohol intake: former Patient Tobacco Use Status: Current everyday Tobacco user Advance Directives: No Advance Directives Information Provided: Yes Gender identity: Female Physical Exam ED Vital Signs: Vital Signs - 24 hr 12/25/24 15:24 Temperature 98.1 F Pulse Rate 71 Respiratory Rate 18 Blood Pressure 181/88 H Pulse Oximetry 100 Oxygen Delivery Method Room Air BMI result Body Mass Index 37.1 Const General: healthy appearing, comfortable, no acute distress, alert and awake Nutritional Appearance: well nourished Orientation/consciousness: patient oriented x3 HENMT Head: Yes normocephalic and Yes atraumatic Eyes Eyelids: Yes eyelids normal Conjunctivae: conjunctivae normal Sclerae: sclerae normal Corneas: corneas normal Pupils: Equal, round and reactive pupils present EOM: EOMs intact bilaterally Neck Neck: Yes full ROM Resp Effort & Inspection: normal respiratory effort, able to speak in complete sentences, no audible wheezes and not labored Auscultation: clear to auscultation bilaterally Cardio Rate: regular rate Rhythm: regular rhythm GI Inspection: No distended Palpation (GI): Soft to palpation, not firm, nontender, no guarding and not rigid Skin General skin exam: no rashes or lesions noted and elasticity normal Neuro General: patient oriented x3 Cranial nerves: Yes Equal, round and reactive pupils present and Yes Bilaterally intact EOM present Cognition (Neuro): normal cognition Extrem Other: Moving all extremities well without any obvious deformities Course Course Course Narrative: This is a Rapid Medical Examination (RME) performed by Cande Collins PA-C in triage. Full HPI, ROS, assessment and treatment plan per primary provider in the Main ED. Hx: 54 yo F here for eval of b/l shoulder pain and right leg pain x2 weeks. pain to all areas began at the same time. no falls/trauma. no chest pain. endorses shortness of breath on walking. states 1 mo ago she was told I have a bump on my heart - cannot elaborate. Plan: labs Medical Decision Making Medical Decision Making MDM Narrative: 54-year-old female who denies any past medical history presents for evaluation of arthralgias in both shoulders, right hip/groin. This has been going on for several weeks. She denies any injury or trauma. No indication for x-rays at this time. She would have basic labs ordered which shows a slightly elevated CRP and ESR. Given the family history of SLE and arthritis, though it is not sure what type of arthritis in her mother has in his possible that she has a rheumatologic condition. I have a very low suspicion for infectious process affecting all her joints. She denies any significant risk factors for tick-borne illness but I did order a tick-borne panel for atraumatic joint pain. We will treat with a short course of prednisone and refer her to rheumatology. Differential Diagnosis Differential Diagnoses: The differential diagnosis associated with the presentation includes Arthralgia Joint pain Rheumatoid arthritis Lupus Tick-borne disease Lab Data MDM Lab Attestation statement: I reviewed the patient's lab results. no leukocytosis or anemia. Normal platelet count. No significant electrolyte abnormalities warranting dimension. Elevated inflammatory markers including ESR and CRP 12/25/24 15:51 12/25/24 15:50 Labs: Lab Results 12/25/24 12/25/24 Range/Units 15:50 15:51 WBC 8.5 (4.8-10.8) X10*3/uL RBC 4.47 (4.20-5.50) X10*6/uL Hgb 13.2 (12.0-16.0) g/dl Hct 40.2 (37.0-47.0) % MCV 89.9 (80.0-98.0) fL MCH 29.5 (27.0-33.0) pg MCHC 32.8 (31.0-35.0) g/dl RDW 13.7 (11.0-16.0) % Plt Count 214 (160-400) X10*3/uL MPV 12.5 H (9.4-12.3) fL Immature Gran % (Auto) 0.1 (0.0-0.4) % Neut % (Auto) 52.0 (45-73) % Lymph % (Auto) 40.3 H (20-40) % [place] % (Auto) 6.5 (2-11) % Eos % (Auto) 0.7 (0-4) % Baso % (Auto) 0.4 (0-2) % Lymph # (Auto) 3.4 (1.2-4.9) X10*3/uL [place] # (Auto) 0.6 (0.1-1.2) X10*3/uL Eos # (Auto) 0.1 (0.0-0.4) X10*3/uL Baso # (Auto) 0.0 (0.0-0.2) X10*3/uL Abs Immat Gran (auto) 0.01 (0.00-0.03) X10*3/uL Absolute Neuts (auto) 4.4 (2.0-8.3) x10*3/uL Absolute Nucleated RBC 0.000 (0.0-0.012) X10*3/uL Nucleated RBC % (auto) 0.0 (0.0-0.2) /100WBC ESR 23 H (0-20) MM/HR Sodium 141 (135-145) mmol/L Potassium 4.0 (3.3-5.1) mmol/L Chloride 109 H (96-108) mmol/L Carbon Dioxide 24 (22-29) mmol/L Anion Gap 12 (12-20) BUN 13 (9-16) mg/dL Creatinine 0.70 (0.5-1.4) mg/dL Estim Creat Clear Calc 103.0 Estimated GFR > 60 Random Glucose 96 (60-115) mg/dL Calcium 9.5 (8.4-10.2) mg/dL Magnesium 2.2 (1.6-2.6) mg/dL Total Bilirubin 0.3 (0.0-1.0) mg/dL AST 41 H (5-31) U/L ALT 49 H (0-31) U/L Alkaline Phosphatase 119 H (39-117) U/L C-Reactive Protein 2.58 H (< or = 0.50) mg/dL Total Protein 7.9 (6.5-8.0) g/dL Albumin 4.5 (3.5-5.0) g/dL Discharge Plan Discharge Clinical Impression: Arthralgia Patient Disposition: Home, Self-Care Instructions: Arthralgia (ED) Additional Instructions: your blood work showed elevation of some inflammatory markers. This could be due to a rheumatoid process. Given your family history of lupus I suggest follow up with Rheumatology in the referral was provided. You may take prednisone 40 mg daily for the next 5 days. Return for new or worsening symptoms. I also added on a tick panel and we will call you if there are any positive results Prescriptions: New prednisone 20 mg tablet 40 mg PO DAILY Qty: 10 0RF Referrals: [facility] [place] Rheumatology Service [Provider Group, Rheumatology] Referral Note: arthralgias, family history of lupus Print Language: Georgian
--- NOTE | 2024-12-25 15:53 | PC.NURSE ---
Labs drawn and sent for analysis, results pending. Awaiting ED provider evaluation. Care ongoing by this RN.
[2024-12-25 15:55] LABS: MANUAL DIFF FLAG NO
[2024-12-25 15:57] LABS: Hematocrit 40.2 % (37.0-47.0); Hemoglobin 13.2 g/dl (12.0-16.0); Imm Gran Abs Auto 0.01 X10*3/uL (0.00-0.03); Imm Gran Pct Auto 0.1 % (0.0-0.4); Lymphocytes Absolute Auto 3.4 X10*3/uL (1.2-4.9); Mean Corpuscular HGB Conc 32.8 g/dl (31.0-35.0); Mean Corpuscular Hemoglobin 29.5 pg (27.0-33.0); Mean Corpuscular Volume 89.9 fL (80.0-98.0); NRBC Abs Auto 0.000 X10*3/uL (0.0-0.012); NRBC Pct Auto 0.0 /100WBC (0.0-0.2); Platelet Count 214 X10*3/uL (160-400); Red Blood Count 4.47 X10*6/uL (4.20-5.50); White Blood Count 8.5 X10*3/uL (4.8-10.8)
[2024-12-25 16:12] LABS: Alanine Aminotransferase 49 U/L (0-31); Albumin Level 4.5 g/dL (3.5-5.0); Alkaline Phosphatase 119 U/L (39-117); Anion Gap 12 (12-20); Aspartate Amino Transferase 41 U/L (5-31); Blood Urea Nitrogen 13 mg/dL (9-16); Calcium 9.5 mg/dL (8.4-10.2); Carbon Dioxide 24 mmol/L (22-29); Chloride 109 mmol/L (96-108); Creatinine Clr Calc Pharmacy 103.0; Estimated Glomerular Filt Rate > 60; Magnesium 2.2 mg/dL (1.6-2.6); Potassium 4.0 mmol/L (3.3-5.1); Sodium 141 mmol/L (135-145); Total Protein 7.9 g/dL (6.5-8.0)
[2024-12-25 16:46] LABS: Erythrocyte Sedimentation Rate 23 MM/HR (0-20)
[2024-12-25 17:20] VITALS: BP 163/70; PULSE 70; RESP 18; TEMP 36.6; O2SAT 99
--- OUTSIDE RECORDS SUMMARY | 2024-12-25 18:42 | XMS_ITS | Clinical Summary ---
Author Organization [employer] Address [address] [place] [address] Care Team Providers Care Frame Stripper Name Role Phone Unavailable Primary Care Provider Unavailabl e Social History Tobacco Use Types Packs/Day Years Used Date Smoking Tobacco: Never Assessed Comments Unknown Sex and Gender Information Value Date Recorded Sex Assigned at Female 12/13/2021 10:21 AM EDT Legal Sex Female 10:21 AM EDT Gender Identity Choose not to disclose 10:21 AM EDT Sexual Orientation Choose not to disclose 2021 10:21 AM EDT Plan of Treatment Health Maintenance Due Date Last Done Comments CT Colonography 1972 Colonoscopy 1972 Colorectal Cancer Screening 1972 Depression Screening 1972 FIT DNA/Cologuard 1972 FIT 1972 FOBT 1972 Sigmoidoscopy 1972 Disability Screening 1972 Alcohol/Substance Use Screening 1984 Tobacco Screening 1984 Family Planning (PISQ) 05/27/1987 Hepatitis B Vaccines (1 of 3 - 19+ 3-dose series) 05/27/1991 Pap Smear 1993 Cervical Cancer Screening 2002 HPV/Cotest 2002 Mammogram 2012 Pneumococcal Vaccine: 50+ Years (1 of 1 - PCV) 2022 Zoster Vaccines (1 of 2) 2022 COVID-19 Vaccine ( - 2024-2 6 season) 2024 07/29/2020, 07/01/2020 Influenza Vaccine (#1) 2024 DTaP/Tdap/Td Vaccines (2 - T d or Tdap) 06/13/2030 06/13/2020 RSV Patients and Patients Aged 60 years or older (1 - 1-dose 75+ series) 05/27/2047 HIB Vaccines Aged Out No longer eligi ble based on patient's age to complete this topic HPV Vaccines Aged Out No longer eligi ble based on patient's age to complete this topic Hepatitis A Vaccines Aged Out No long er eligible based on patient's age to complete this topic IPV Vaccines Aged Out No longer eligi ble based on patient's age to complete this topic Meningococcal B Vaccine Aged Out No l onger eligible based on patient's age to complete this topic Meningococcal Vaccine Aged Out No ricardo jc eligible based on patient's age to complete this topic RSV under 20 months Aged Out No longe r eligible based on patient's age to complete this topic Rotavirus Vaccines Aged Out No longer eligible based on patient's age to complete this topic
--- OUTSIDE RECORDS SUMMARY | 2024-12-25 18:42 | XMS_ITS | Encounter Summary ---
Author Organization [employer] [facility] Address [address] [place] [address] Care Team Providers Care Marketing Operations Specialist Name Role Phone Unavailable Primary Care Provider Unavailabl e Encounter Details Date Type Department Care Team (Latest Contact Info) Description 05/12/2020 Abstract [facility] CONVERSIONS Dental, Provider, DDS Social History Tobacco Use Types Packs/Day Years Used Date Smoking Tobacco: Never Assessed Comments Unknown Sex and Gender Information Value Date Recorded Sex Assigned at Female 12/13/2021 10:21 AM EDT Legal Sex Female 10:21 AM EDT Gender Identity Choose not to disclose 2 10:21 AM EDT Sexual Orientation Choose not to disclose 2021 10:21 AM EDT documented as of this encounter Plan of Treatment Not on file documented as of this encounter Visit Diagnoses Not on filedocumented in this encounter
[2024-12-26 16:43] LABS: A. Phagocytphilium DNA,RT-PCR NOT DETECTED (NOT DETECTED); Babesia Microti DNA, RT-PCR NOT DETECTED (NOT DETECTED); Borrelia Miyamotoi,DNA RT-PCR NOT DETECTED (NOT DETECTED); E.Chaffeensis DNA RT-PCR NOT DETECTED (NOT DETECTED); Lyme(Borrelia ssp)DNA RT-PCR NOT DETECTED (NOT DETECTED)
== END 2024-12-25 17:20 | disposition home or self-care (01) ==
PROVIDERS: Physician Assistant; Physician Assistant Medical; Emergency Provider Emergency Medicine; PCP Internal Medicine
DX: M25.511 Pain in right shoulder (principal); M25.512 Pain in left shoulder; M25.551 Pain in right hip; I10 Essential (primary) hypertension; Z82.69 Family history of other diseases of the musculoskeletal system and connective tissue
CPT/HCPCS: 36415; 80053; 83735; 85025; 85652; 86140; 87468; 87469; 87478; 87484; 87798; 99282; 99283

== ENCOUNTER 2025-01-03 10:28 | Emergency (ER) | payer OTHER, SELFPAY ==
--- OUTSIDE RECORDS SUMMARY | 2024-05-08 19:00 | XMS_ITS | Continuity of Care Document ---
Author Organization [facility] Address [address] [place] [address] Phone Care Team Providers Care Sister Superior Name Role Phone Zach MYERS, RVT, RPVI, Christopher Unavailable U navailable Allergies, Adverse Reactions, Alerts Substance Reaction Status Criticality No Known Allergies Active No Inform ation Procedures Procedure Date Office/Outpt E&M Established 15 Mins- CT & [place] Duplex Scan-extrem Veins; Comp- CT & [place] Duplex Scan-extrem Veins; Uni/ CT & [place] F Duplex Scan-extrem Veins; Comp- CT & [place] Ultrason Guidan Needle Bx-rad- CT & [place] F Inj Sclerosing Solution; Sngl- CT & [place] F Varithena, Single Truncal Vein - CT & [place] Duplex Scan-extrem Veins; Uni/ CT & [place] F Inj Scleros Solut; Mx Veins 1- CT & [place] J Ultrason Guidan Needle Bx-rad- CT & [place] J Duplex Scan-extrem Veins; Uni/ CT & [place] J Varithena, Single Truncal Vein - CT & [place] Office/Outpt E&M Established 15 Mins- CT & [place] Duplex Scan-extrem Veins; Comp- CT & [place] Duplex Scan-extrem Veins; Uni/ CT & MA O Varithena, Single Truncal Vein - CT & [place] Office/Outpt E&M Established 15 Mins- CT & [place] Duplex Scan-extrem Veins; Comp- CT & [place] Duplex Scan-extrem Veins; Uni/ CT & [place] J Endovenous Laser, 1st Vein- CT & [place] Ultrason Guidan Needle Bx-rad- CT & [place] J Inj Sclerosing Solution; Sngl- CT & [place] J Duplex Scan-extrem Veins; Uni/ CT & [place] J Duplex Scan-extrem Veins; Uni/ CT & [place] J Inj Scleros Solut; Mx Veins 1- CT & [place] J Ultrason Guidan Needle Bx-rad- CT & [place] J Endovenous Laser, 1st Vein- CT & [place] Endovenous laser vein addon- CT & MA Aug Ultrason Guidan Needle Bx-rad- CT & [place] J Inj Sclerosing Solution; Sngl- CT & [place] J Offic/outpt E&m Estab 5 Min Trial- Telem edicine CT & [place] Office/Oupt E&M New Pt 45 Mins Duplex Scan-extrem Veins; Comp 24 Advance Directives Directive Yes / No Effective Date File Name No Information Encounters Encounter Description Practice Location Reason(s) For Visit Diagnoses Date Provider Providers Copied on Encounter [facility], [address], [place], [id number], [place] tel:[phone] [facility] No Information Apr- 5 Zach MYERS, RVT, RPVI Christopher. [address], [place], [id number], [place]. tel:[phone] Referring Provider: Gloria Diez MD, [address] [facility] [address], [place], [address]. tel:[phone] Office/Outpt E&M Established 15 [facility]- CT & [facility], [address] [place] [address] Dr Angela [address], [id number], [place] tel:[phone] CVR - [facility] Venous insufficiency (chronic) (peripheral) 5 Zach MYERS RVT, GEORGE White. [address] [place] [address] [address], [place], [id number], [place]. tel:[phone] Referring Provider: Gloria Diez MD, [address] [place] [address] Suite [facility], [place], [address]. tel:[phone] [facility], [address] [place] [address] Dr Angela 1000[facility] [place], [id number], [place] tel:[phone] [facility] Chronic venous hypertension (idiopathic) with other complications of bilateral lower extremity 5 Zach MYERS RVT, GEORGE White. [address] [place] [address], [address], [place], [id number], [place]. tel:[phone] Referring Provider: Gloria Diez MD, [address] [place] [address] Suite [facility], [place], [address]. tel:[phone] [facility], [address] [place] [address] Dr Angela 1000Suite [place], [id number], [place] tel:[phone] CVR - [facility] Encounter for follow-up examination after completed treatment for conditions other than malignant neoplasmPain in right leg 5 Zach MYERS RVT, GEORGE White. [address] [place] [address], [address], [place], [id number], [place]. tel:[phone] Referring Provider: Gloria Diez MD, [address] [place] [address] [address], [place], [address]. tel:[phone] [facility], [address] [place] [address] Dr Angela 1000Suite [place], [id number], [place] tel:[phone] [facility] [place] [facility] [place] Encounter for follow-up examination after completed treatment for conditions other than malignant neoplasmChron ic venous hypertension (idiopathic) with other complications of bilateral lower extremity Feb-0 5 Zach MYERS RVT, GEORGE White. [address] [facility], [address], [facility] [place] [id number], [place]. tel:[phone] Referring Provider: Gloria Diez MD, [address] [place] [address] [address], [place], [address]. tel:[phone] [facility], [address] [place] [address] Dr Angela 1000Suite [place], [id number], [place] tel:[phone] [facility] [place] [facility] [place] Varicose veins of right lower extremity with other complications b-0 5 Jasmina Cade. [address] [place] [address], [place] [id number], [place]. tel:[phone] Referring Provider: Gloria Diez MD, [address] [place] [address] [address], [place], [address]. tel:[phone] [facility], [address] [place] [address] Dr Angela 1000Suite [place], [id number], [place] tel:[phone] [facility] [place] [facility] [place] Varicose veins of right lower extremity with other complications Feb-0 5 Zach MYERS RVT, GEORGE White. [address] [place] [address] [address], [place], [id number], [place]. tel:[phone] Referring Provider: Gloria Diez MD, [address] [place] [address] [address], [place], [address]. tel:[phone] [facility], [address] [place] [address] Dr Angela [address], [id number], [place] tel:[phone] [facility] [place] [facility] [place] Encounter for follow-up examination after completed treatment for conditions other than malignant neoplasmPain in left leg b0 5 Zach MYERS RVT, GEORGE White. [address] [facility] [address], [facility] [place], [id number], [place]. tel:[phone] Referring Provider: Gloria Diez MD, [address] [place] [address] [address], [place], [address]. tel:[phone] [place] [facility], [address] [place] [address] Dr Angela 1000Suite [place], [id number], [place] tel:[phone] [facility] [place] [facility] [place] Varicose veins of left lower extremity with other complications 5 Deon Kirkpatrick. [address] [place] [address], [address], [facility] [place], [id number], [place]. tel:[phone] Referring Provider: Gloria Diez MD, [address] [place] [address] [address], [place], [address]. tel:[phone] [place] [facility], [address] [place] [address] [address] 1000[place], [id number], [place] tel:[phone] [facility] - [place] [facility] [place] Encounter for follow-up examination after completed treatment for conditions other than malignant neoplasmChron ic venous hypertension (idiopathic) with other complications of left lower extremity 5 Zach MYERS RVT, GEORGE White. [address] [place] [address], [address], [facility] [place], [id number], [place]. tel:[phone] Referring Provider: Gloria Diez MD, [address] [place] [address] [address], [place], [address]. tel:[phone] [place] [facility], [address] [place] [address] [address], [id number], [place] tel:[phone] [facility] [place] [facility] [place] Varicose veins of left lower extremity with other complications 5 Zach MYERS RVT, GEORGE White. [address] [place] [address], [address], [facility] [place], [id number], [place]. tel:[phone] Referring Provider: Gloria Diez MD, [address] [place] [address] [address], [place], [address]. tel:[phone] Office/Outpt E&M Established 15 Mins- CT & [facility], [address] [place] [address] Dr Angela 1000Suite [place], [id number], [place] tel:[phone] [facility] Lymphedema, not elsewhere classifiedHer editary lymphedemaLoc alized edemaCramp and spasmRestless legs syndromeVenou s insufficiency (chronic) (peripheral) 4 Zach MYERS RVT, GEORGE White. [facility], [address], [place], [id number], [place]. tel:[phone] Referring Provider: Gloria Diez MD, [address] [place] [address] [address], [place], [address]. tel:[phone] [facility], [address] [place] [address] Dr Angela 1000[facility] [place], [id number], [place] tel:[phone] [facility] Chronic venous hypertension (idiopathic) with other complications of bilateral lower extremity 4 Zach MYERS RVT, GEORGE White. [address] [place] [address], [address], [place], [id number], [place]. tel:[phone] Referring Provider: Gloria Diez MD, [address] [place] [address] [address], [place], [address]. tel:[phone] [facility], [address] [place] [address] Dr Angela 1000[facility] [place], [id number], [place] tel:[phone] [facility] Encounter for follow-up examination after completed treatment for conditions other than malignant nePain in right lower leg 4 Zach MYERS RVT, GEORGE White. [address] [place] [address], [address], [place], [id number], [place]. tel:[phone] Referring Provider: Gloria Diez MD, [address] [place] [address] [address], [place], [address]. tel:[phone] [facility], [address] [place] [address] Dr Angela 1000[address] 1000[place], [id number], [place] tel:[phone] [facility] Varicose veins of right lower extremity with other complications Nov-2 - 4 Zach MYERS RVT, GEORGE White. [address] [place] [address], [place], [id number], [place]. tel:[phone] Referring Provider: Gloria Diez MD, [address] [facility] [address], [place], [address]. tel:[phone] Office/Outpt E&M Established 15 Mins- [place] & [place] [facility], [address] [place] [address] Dr Angela 1000[facility] [place], [id number], [place] tel:[phone] [facility] Chronic venous hypertension (idiopathic) without complications of bilateral lower extremityRest less legs syndromeVenou s insufficiency (chronic) (peripheral)L ymphedema, not elsewhere classifiedHer editary lymphedema Sep-0 4 Zach MYERS RVT, GEORGE White. [address] [place] [address], [facility] [place] [id number], [place]. tel:[phone] [facility], [address] [place] [address] Dr Angela 1000[facility] [place], [id number], [place] tel:[phone] [facility] Chronic venous hypertension (idiopathic) with other complications of bilateral lower extremity Sep-0 4 Zach MYERS RVT, GEORGE White. [address] [place] [address], [facility] [place] [id number], [place]. tel:[phone] Referring Provider: Christopher Serrano MD, RVT, GEORGE, [address] [place] [address], [place], [address] . tel:[phone] [facility], [address] [place] [address] Dr Angela 1000[facility] [place], [id number], [place] tel:[phone] CVR [facility] Encounter for follow-up examination after completed treatment for conditions other than malignant neChronic venous hypertension (idiopathic) with other complications of left lower extremity 4 Zach MYERS RVT, RPVI Robert. [address] [facility], [address], [place], [id number], [place]. tel:[phone] Referring Provider: Christopher Serrano MD, RVT, GEORGE, [address] [facility] [address], [place], [address] . tel:[phone] [place] [facility], [address] [place] [address] [address] 1000[place], [id number], [place] tel:[phone] CVR - [facility] Varicose veins of left lower extremity with other complications 4 Zach MYERS RVT, RPVI Robert. [address] [place] [address], [address], [place], [id number], [place]. tel:[phone] Referring Provider: Gloria Diez MD, [address] [place] [address] [address], [place], [address]. tel:[phone] [facility], [address] [place] [address] [address] 1000[place], [id number], [place] tel:[phone] CVR - [facility] Encounter for follow-up examination after completed treatment for conditions other than malignant nePain in right leg 4 Zach MYERS RVT, RPVI Robert. [address] [facility], [address], [place], [id number], [place]. tel:[phone] Referring Provider: Gloria Diez MD, [facility] [address], [place], [address]. tel:[phone] [facility], [address] [place] [address] Dr [address] 1000[place], [id number], [place] tel:[phone] [facility] [place] Encounter for follow-up examination after completed treatment for conditions other than malignant neoplasmVaric ose veins of right lower extremity with pain 4 Zach MYERS RVT, RPVI Robert. [address] [facility], [address], [place], [id number], [place]. tel:[phone] Referring Provider: Christopher Serrano MD, RVT, RPBRUNA, [address] [place] [address], [place], [address] . tel:[phone] [facility], [address] [place] [address] Dr Angela 1000Suite 1000[place], [id number], tel:[phone] CVR - [place] [facility] [place] Varicose veins of right lower extremity with other complications 4 Jasmina Cade. [address] [place] [address], [place], [id number], [place]. tel:[phone] [facility], [address] [place] [address] Dr Angela 1000[facility] 1000[place], [id number], [place] tel:[phone] CVR - [place] [facility] [place] Chronic venous hypertension (idiopathic) with inflammation of right lower extremity 4 Zach MYERS, KRISTINA, RPBRUNA White. [address] [place] [address], [place], [id number], [place]. tel:[phone] Referring Provider: Christopher Serrano MD, KRISTINA, RPBRUNA, [address] [place] [address], [place], [address] . tel:[phone] [facility], [address] [place] [address] Dr Angela 1000[facility] 1000[place], [id number], [place] tel:[phone] CVR - [place] [facility] [place] No Information 4 Zach MYERS RVT, RPBRUNA White. [address] [place] [address], [place], [id number], [place]. tel:[phone] Offic/outpt E&m Estab 5 Min Trial- Telemedicine CT & [place] [facility], [address] [place] [address] Dr Angela 1000[facility] 1000[place], [id number], tel:[phone] CVR - [place] [facility] [place] Venous insufficiency (chronic) (peripheral)C ramp and spasmRestless legs syndrome 4 Deon Kirkpatrick. [address] [place] [address], [place], [id number], [place]. tel:[phone] Office/Oupt E&M New Pt 45 Mins [facility], [address] [place] [address] [facility] 1000[facility] 1000[place], [id number], tel:[phone] CVR - [facility] Varicose veins of bilateral lower extremities with other complications Pain in left lower legPain in right legPain in left legRestless legs syndromeCramp and spasm 4 Zach MYERS, KRISTINA, GEORGE White. [address] [place] [address], [place], [id number], [place]. tel:[phone] Referring Provider: Gloria Diez MD, [address] [facility] [address], [place], [address]. tel:[phone] [place] [facility], [address] [place] [address] [facility] 1000[facility] 1000[place], [id number], [place] tel:[phone] [facility] Chronic venous hypertension (idiopathic) with other complications of bilateral lower extremity 4 Zach MYERS, KRISTINA, GEORGE White. [address] [place] [address], [place], [id number], [place]. tel:[phone] Referring Provider: Christopher Serrano MD, RVT, GEORGE, [address] [place] [address], [place], [address] . tel:[phone] Family History Family Member Type Diagnosis Age At Onset No Information Payers Payer name Insurance type Covered constitution party ID Authoriza tion(s) No Information Social History Type Description Quantity Date Captured Comments Sex Female Smoking Status No Information Chief Complaint And Reason For Visit No Information Reason For Referral Reason For Referral No Information Plan Of Treatment Date Type Action Status Goal Tobacco cessation counseling completed Goal Diet education completed Goal Tobacco cessation counseling completed Goal Diet education completed Goal Tobacco cessation counseling completed Goal Diet education completed Goal Tobacco cessation counseling completed Goal Tobacco cessation counseling completed Goal Diet education completed Referral Ordered: Weight management: Referral to physician timeframe: 3 Months (related to Body mass index (BMI) 28.0-28.9, adult) ordered Referral Ordered: Weight management: Referral to physician timeframe: 3 Months (related to Body mass index (BMI) 28.0-28.9, adult) ordered Referral Ordered: Weight management: Referral to physician timeframe: 3 Months (related to Body mass index (BMI) 28.0-28.9, adult) ordered Referral Ordered: Weight management: Referral to physician timeframe: 3 Months (related to Body mass index (BMI) 28.0-28.9, adult) ordered History Of Present Illness Encounter Date Complaint History Of Prese nt Illness No Information Functional Status Date Functional Assessmen t No Information Instructions Date Instruction Additional Infor rukhsana Patient education booklet given Related to Venous insufficiency (chronic) (peripheral) Compression stocking usage as conservative measure Related to Venous insufficiency (chronic) (peripheral) Lifestyle education Related to B zahira mass index (BMI) 28.0-28.9, adult Giving Encouragement to exercise Related to Body mass index (BMI) 28.0-28.9, adult Diet education Related to Body mass index (BMI) 28.0-28.9, adult Lifestyle education Related to B zahira mass index (BMI) 28.0-28.9, adult Giving Encouragement to exercise Related to Body mass index (BMI) 28.0-28.9, adult Diet education Related to Body mass index (BMI) 28.0-28.9, adult Pre and post instruc tions reviewed and provided Related to Localized edema Patient education booklet given Related to Localized edema Patient education booklet given Related to Chronic venous hypertension (idiopathic) without complications of bilateral lower extremity Compression stocking usage as conservative measure Related to Chronic venous hypertension (idiopathic) without complications of bilateral lower extremity Lifestyle education Related to B zahira mass index (BMI) 28.0-28.9, adult Giving Encouragement to exercise Related to Body mass index (BMI) 28.0-28.9, adult Diet education Related to Body mass index (BMI) 28.0-28.9, adult Patient education booklet given Related to Cramp and spasm Compression stocking usage as conservative measure Related to Cramp and spasm Lifestyle education Related to B zahira mass index (BMI) 28.0-28.9, adult Giving Encouragement to exercise Related to Body mass index (BMI) 28.0-28.9, adult Diet education Related to Body mass index (BMI) 28.0-28.9, adult Pre and post instruc tions reviewed and provided Related to Varicose veins of bilateral lower extremities with other complications Patient education booklet given Related to Varicose veins of bilateral lower extremities with other complications Assessments Type Assessment Date No Information Patient Care Teams Name Effective Dates (start - stop) Status Members No Information
[2025-01-03 10:59] VITALS: BP 139/84; PULSE 77; RESP 18; TEMP 36.4; O2SAT 97; BMI 36.5
--- OUTSIDE RECORDS SUMMARY | 2025-01-03 12:26 | XMS_ITS | Encounter Summary ---
Author Organization [facility] Address [address] [place] [address] Care Team Providers Care Director [employer] Name Role Phone Unavailable Primary Care Provider Unavailabl e Encounter Details Date Type Department Care Team (Latest Contact Info) Description 05/12/2020 Abstract [facility] CONVERSIONS Dental, Provider, DDS Social History [...]
--- OUTSIDE RECORDS SUMMARY | 2025-01-03 12:26 | XMS_ITS | Clinical Summary ---
Author Organization [employer] Address [address] [place] [address] Care Team Providers Care Enlisted Aircrew/Aerial Observer/Gunner Name Role Phone Unavailable Primary Care Provider [...]
--- NOTE | 2025-01-03 12:54 | ED.EXTPRO ---
HPI - Extremity Problem General Chief complaint: Extremity Problem Stated complaint: Medication Refill Time Seen by Provider: 01/03/25 11:22 Source: patient and family Mode of arrival: ambulatory Limitations: no limitations History of Present Illness ED Provider: BETH Otto HPI Narrative: Chief Complaint: ?I have a lot of pain. I can?t move my arms or sleep.? History of Present Illness: Patient presents with recurrent diffuse musculoskeletal pain. Patient was seen in the ED on Dec for similar pain and was told the etiology could be arthritis or lupus; she was given prednisone at that time. She reports continued severe pain despite completing prednisone, with inability to move her arms and difficulty sleeping. Today the pain is worst in the left shoulder, right arm, and right leg. She denies pain in the left leg. States she has ?muscle pains everywhere.? No prior trials of meloxicam or cyclobenzaprine. Patient has a rheumatology appointment scheduled for Mar at [facility]. No falls or truama Related Data Previous Rx's ?Medication ?Instructions ?Recorded prednisone 20 mg tablet 40 mg (2 x 20 mg) PO DAILY #10 tabs 12/25/24 cyclobenzaprine 10 mg tablet 10 mg PO BEDTIME PRN muscle spasm 01/03/25 #7 tabs meloxicam 15 mg tablet 15 mg PO DAILY #30 tabs 01/03/25 Allergies Allergy/AdvReac Type Severity Reaction Status Date / Time No Known Allergies Allergy Verified 01/03/25 11:02 Review of Systems Review of Systems: Review of Systems: Musculoskeletal: Positive for pain in left shoulder, right arm, right leg; negative for pain in left leg. All other systems not discussed. Yes all other systems are reviewed and are negative [facility] Past Medical History Medical History HTN (hypertension) Migraines Surgical History History of delivery Social History Social History Alcohol intake: former Patient Tobacco Use Status: Current everyday Tobacco user Advance Directives: No Advance Directives Information Provided: Yes Gender identity: Female Physical Exam Exam: Exam: Appearance: Alert.? Oriented X3.? No acute distress.? Head: Normocephalic, atraumatic, no step-offs or deformities Eyes: Pupils equal, round and reactive to light.? Neck: Normal inspection.? Neck supple.? CVS: Normal heart rate and rhythm.? Pulses normal.? Respiratory: No respiratory distress.? Breath sounds normal.? Abdomen: Soft and nontender.? Skin: Skin warm and dry.? Normal skin color.? Normal skin turgor.? Extremities: No lower extremity edema.? No calf ttp. 5/5 strength to bilateral upper and lower extremities. Full range of motion to bilateral shoulders with discomfort and full range of motion to hips bilaterally with discomfort. Patient ambulatory. No wrist drop no footdrop. Back: No midline tenderness, no C-spine tenderness, full range of motion, no CVA tenderness bilaterally Neuro: Oriented X 3.? No motor deficit.? No sensory deficit. CN 2-12 intact Vital Signs: Vital Signs: Last Vital Signs Temp 97.6 F 01/03/25 10:59 Pulse 77 01/03/25 10:59 Resp 18 01/03/25 10:59 BP 139/84 01/03/25 10:59 Pulse Ox 97 01/03/25 10:59 O2 Del Method Room Air 01/03/25 10:59 BMI result Body Mass Index 36.5 Vital signs stable Course Reevaluation(s) Reevaluation #1: Patient was seen here on 12/25/24 HPI narrative: 54-year-old female who denies any past medical history presents for evaluation of pain in her joints. She states that 2 weeks ago she woke up with pain in both her shoulders and her right hip/ groin. She denies any injury, denies any heavy lifting or falls. She reports that she has tried Motrin and Tylenol without any improvement in his symptoms her pain does not radiate. She denies any fevers, chills, cough, chest pain, shortness of breath, abdominal pain, nausea vomiting. she reports that her mother has a history of arthritis but she is not sure which type. She states that her aunt has a history of lupus She as dc home w/ prednisone 40 mg po daily x 5 days Time: 13:01 Reevaluation #2: Patient will be discharged on cyclobenzaprine and meloxicam. Educated patient on diagnosis and treatment plan, answered all question, patient verbalizes understanding. At this time patient will be discharged home, advised to return with new or worsening symptoms. Educated on worrisome signs and symptoms and when to return. At this time I feel comfortable discharge home. Time: 13:01 Medical Decision Making Medical Decision Making [facility] Narrative: 1256 Recurrent diffuse musculoskeletal pain refractory to prior short course of prednisone; today?s pain localized primarily to left shoulder, right arm, and right leg. Needs anti-inflammatory therapy and muscle relaxation while awaiting rheumatology evaluation. Problem #1: Diffuse musculoskeletal pain / possible inflammatory arthritis Assessment: Ongoing severe pain affecting multiple joints and muscle groups; prior prednisone provided inadequate relief. Etiology remains unclear (arthritis vs lupus vs other). Awaiting specialist evaluation. Plan: Prescribe meloxicam (NSAID) for anti-inflammatory effect. Prescribe a muscle relaxer (e.g., cyclobenzaprine) for symptomatic relief. Avoid repeat prednisone courses at this time as discussed. Continue with scheduled rheumatology appointment on Mar. Return to ED for worsening pain, new symptoms, or inability to perform activities of daily living. Differential Diagnosis Differential Diagnoses: The differential diagnosis associated with the presentation includes Inflammatory arthritis (including juvenile idiopathic arthritis): Considered due to the patient's age, recurrent diffuse musculoskeletal pain, and possible prior diagnosis in the ED. Inadequate response to prednisone does not rule out this diagnosis. Systemic lupus erythematosus (SLE): Suggested by the prior ED consideration, as SLE can present with diffuse musculoskeletal pain in adolescents. Fibromyalgia: Multiple pain sites, sleep disturbance, and diffuse muscle pain are consistent with fibromyalgia, which can occur in adolescents. Other connective tissue diseases (e.g., mixed connective tissue disease): These can present with diffuse musculoskeletal pain and should be considered given the unclear etiology. Infectious causes (e.g., viral myositis): Viral infections can cause diffuse muscle pain, though the recurrent nature makes this less likely. Medication-induced myopathy: Less likely as there is no history of relevant medication use, but should be considered in the differential. Non-inflammatory musculoskeletal pain syndromes: Chronic pain syndromes unrelated to inflammation may present similarly and should be considered. Admission/Observation Consideration of admission/observation: Escalation of care including admission/observation considered (Unlikely) Lab Data [facility] Lab Attestation statement: I reviewed the patient's lab results. Independent Historian Clinical information obtained from an independent historian. History obtained from or confirmed by: Spouse External Record Review External record reviewed: Inpatient record, Office record, Outpatient record, Prior outpatient labs, Prior outpatient radiology, Primary care record and Outside ED record Tests considered The following testing was considered but not selected: No acute falls or traumas no indication for imaging of shoulders legs Critical Care Time Critical Care Time Critical Care Time: No Discharge Plan Discharge Clinical Impression: Osteoarthritis, Arthralgia Patient Disposition: Home, Self-Care Instructions: Osteoarthritis (DC) Additional Instructions: Take your medications as prescribed. If you were prescribed antibiotics today, it is important that you take your medication to their entirety, do not skip any doses, do not finish them early. Follow-up with your primary care provider this week. Return to the emergency department with new or worsening symptoms. In case of emergency call 911 Meloxicam has been sent to your pharmacy. Please take this as prescribed do not take this with ibuprofen, or other NSAIDs, do not mix this with alcohol. Side effects of this medication including increased risk for bleeding and possible kidney injury. Prescriptions: New meloxicam 15 mg tablet 15 mg PO DAILY Qty: 30 0RF cyclobenzaprine 10 mg tablet 10 mg PO BEDTIME PRN (Reason: muscle spasm) Qty: 7 0RF No Action prednisone 20 mg tablet 40 mg PO DAILY Qty: 10 0RF Referrals: Gloria Diez MD [Primary Care Provider, Internal Medicine] Print Language: Haitian
[2025-01-03 13:09] VITALS: BP 139/84; PULSE 77; RESP 18; TEMP 36.4; O2SAT 97
== END 2025-01-03 13:10 | disposition home or self-care (01) ==
PROVIDERS: Emergency Provider Emergency Medicine; PCP Internal Medicine
DX: M19.012 Primary osteoarthritis, left shoulder (principal); M25.512 Pain in left shoulder; Z76.0 Encounter for issue of repeat prescription
CPT/HCPCS: 99282

== ENCOUNTER 2025-01-15 13:04 | Outpatient (REF) | payer OTHER, SELFPAY ==
--- OUTSIDE RECORDS SUMMARY | 2024-05-08 19:00 | XMS_ITS | Continuity of Care Document ---
Author Organization [facility] Address [address] [place] [address] Phone Care Team Providers Care Enrolled Nurse Name Role Phone Zach MYERS, RVT, RPVI, [...] Providers Copied on Encounter [facility], [address], [place], [id number], [place] tel:[phone] [facility] No Information Apr- 5 Zach MYERS, RVT, RPVI Christopher. [address], [place], [id number], [place]. tel:[phone] Referring Provider: Gloria Diez MD, [address] [facility] [address], [address]. tel:[phone] Office/Outpt E&M Established 15 [facility]- [place] & [place] [facility], [address] [place] [address] Dr Angela [address], [id number], [place] tel:[phone] [facility] - [facility] Venous insufficiency (chronic) (peripheral) 5 Zach MYERS RVT, GEORGE White. [address] [place] [address] [address], [place], [id number], [place]. tel:[phone] Referring Provider: Gloria Diez MD, [address] [place] [address] Suite [facility], [place], [address]. tel:[phone] [facility], [address] [place] [address] Dr Angela 1000[facility] [place], [id number], [place] tel:[phone] [facility] Chronic venous hypertension (idiopathic) with other complications of bilateral lower extremity 5 Zach MYERS RVT, GEORGE White. [address] [place] [address], [address], [place], [id number], [place]. tel:[phone] Referring Provider: Gloria Diez MD, [address] [place] [address] Suite [facility], [place], [address]. tel:[phone] [facility], [address] [place] [address] Dr Angela 1000Suite [place] Rod [place], [id number], [place] tel:[phone] [facility] - [facility] Encounter for follow-up examination after completed treatment for conditions other than malignant neoplasmPain in right leg 5 Zach MYERS RVT, GEORGE White. [address] [place] [address], [address], [place], [id number], [place]. tel:[phone] Referring Provider: Gloria Diez MD, [address] [place] [address] [address], [place], [address]. tel:[phone] [facility], [address] [place] [address] Dr Angela 1000Suite [place], [id number], [place] tel:[phone] [facility] [place] [facility] [place] Encounter for follow-up examination after completed treatment for conditions other than malignant neoplasmChron ic venous hypertension (idiopathic) with other complications of bilateral lower extremity Feb-0 5 Zach MYERS RVT, GEORGE White. [address] [facility], [address], [facility] [place], [id number], [place]. tel:[phone] Referring Provider: Gloria Diez MD, [address] [place] [address] [address], [place], [address]. tel:[phone] [facility], [address] [place] [address] Dr Angela 1000Suite [place], [id number], [place] tel:[phone] [facility] [place] [facility] [place] Varicose veins of right lower extremity with other complications b-0 5 Jasmina Cade. [address] [place] [address], [facility] [place] [place], [id number], [place]. tel:[phone] Referring Provider: Gloria Diez MD, [address] [place] [address] [address], [place], [address]. tel:[phone] [facility], [address] [place] [address] Dr Angela 1000Suite [place], [id number], [place] tel:[phone] [facility] [place] [facility] [place] Varicose veins of right lower extremity with other complications Feb-0 5 Zach MYERS RVT, GEORGE White. [address] [place] [address] [address], [place], [id number], [place]. tel:[phone] Referring Provider: Gloria Diez MD, [address] [place] [address] [address], [place], [address]. tel:[phone] [facility], [address] [place] [address] Dr Angela 1000[address] 1000[place], [id number], [place] tel:[phone] [facility] [place] [facility] [place] Encounter for follow-up examination after completed treatment for conditions other than malignant neoplasmPain in left leg b0 5 Zach MYERS RVT, GEORGE White. [address] [facility] [address], [facility] [place], [id number], [place]. tel:[phone] Referring Provider: Gloria Diez MD, [address] [place] [address] [address], [place], [address]. tel:[phone] [facility], [address] [place] [address] Dr Angela 1000Suite [place], [id number], [place] tel:[phone] [facility] [place] [facility] [place] Varicose veins of left lower extremity with other complications 5 Deon Kirkpatrick. [address] [place] [address], [address], [facility] [place], [place], [id number], [place]. tel:[phone] Referring Provider: Gloria Diez MD, [address] [place] [address] [address], [place], [address]. tel:[phone] [facility], [address] [place] [address] 1000[address] 1000[place], [id number], [place] tel:[phone] [facility] [place] [facility] [place] Encounter for follow-up examination after completed treatment for conditions other than malignant neoplasmChron ic venous hypertension (idiopathic) with other complications of left lower extremity 5 Zach MYERS RVT, GEORGE White. [address] [place] [address], [address], [facility] [place], [id number], [place]. tel:[phone] Referring Provider: Gloria Diez MD, [address] [place] [address] [address], [place], [address]. tel:[phone] [facility], [address] [place] [address] [address] 1000[place], [id number], [place] tel:[phone] [facility] [place] [facility] [place] Varicose veins of left lower extremity with other complications 5 Zach MYERS RVT, GEORGE White. [address] [place] [address], [address], [facility] [place], [id number], [place]. tel:[phone] Referring Provider: Gloria Diez MD, [address] [place] [address] [address], [place], [address]. tel:[phone] Office/Outpt E&M Established 15 M[facility]- [place] & [place] [facility], [address] [place] [address] Dr Angela [address]Suite [place], [id number], [place] tel:[phone] [facility] Lymphedema, not elsewhere classifiedHer editary lymphedemaLoc alized edemaCramp and spasmRestless legs syndromeVenou s insufficiency (chronic) (peripheral) 4 Zach MYERS RVT, GEORGE White. [facility] [facility], [address], [place], [id number], [place]. tel:[phone] Referring Provider: Gloria Diez MD, [address] [place] [address] [address], [place], [address]. tel:[phone] [facility], [address] [place] [address] Dr Angela 1000[facility] [place], [id number], [place] tel:[phone] [facility] Chronic venous hypertension (idiopathic) with other complications of bilateral lower extremity 4 Zach MYERS RVT, GEORGE White. [address] [place] [address], [address], [place], [id number], [place]. tel:[phone] Referring Provider: Gloria Diez MD, [address] [place] [address] [address], [place], [address]. tel:[phone] [facility], [address] [place] [address] Dr Angela 1000[facility] [place], [id number], [place] tel:[phone] [facility] Encounter for follow-up examination after completed treatment for conditions other than malignant nePain in right lower leg 4 Zach MYERS RVT, GEORGE White. [address] [place] [address], [address], [place], [id number], [place]. tel:[phone] Referring Provider: Gloria Diez MD, [address] [place] [address] [address], [place], [address]. tel:[phone] [facility], [address] [place] [address] Dr Angela 1000Suite 1000[place], [id number], [place] tel:[phone] [facility] Varicose veins of right lower extremity with other complications Nov-2 - 4 Zach MYERS RVT, GEORGE White. [address] [place] [address], [facility] [place], [id number], [place]. tel:[phone] Referring Provider: Gloria Diez MD, [address] [facility] [address], [place], [address]. tel:[phone] Office/Outpt E&M Established 15 Mins- [place] & [place] [facility], [address] [place] [address] Dr Angela 1000[facility] [place], [id number], [place] tel:[phone] [facility] Chronic venous hypertension (idiopathic) without complications of bilateral lower extremityRest less legs syndromeVenou s insufficiency (chronic) (peripheral)L ymphedema, not elsewhere classifiedHer editary lymphedema Sep-0 4 Zach MYERS RVT, GEORGE White. [address] [place] [address], [facility] [place], [id number], [place]. tel:[phone] [facility], [address] [place] [address] Dr Angela 1000[facility] [place], [id number], [place] tel:[phone] [facility] Chronic venous hypertension (idiopathic) with other complications of bilateral lower extremity Sep-0 4 Zach MYERS RVT, GEORGE White. [address] [place] [address], [facility] [place] [place], [id number], [place]. tel:[phone] Referring Provider: Christopher Serrano MD, RVT, GEORGE, [address] [place] [address], [facility] [place], [address] . tel:[phone] [facility], [address] [place] [address] Dr Angela 1000[facility] [place], [id number], [place] tel:[phone] CVR [facility] Encounter for follow-up examination after completed treatment for conditions other than malignant neChronic venous hypertension (idiopathic) with other complications of left lower extremity 4 Zach MYERS RVT, RPVI Robert. [address] [facility], [address], [place], [id number], [place]. tel:[phone] Referring Provider: Christopher Serrano MD, RVT, GEORGE, [address] [facility] [address], [place], [address] . tel:[phone] [facility], [address] [place] [address] [address] 1000[place], [id number], [place] tel:[phone] [facility] - [facility] Varicose veins of left lower extremity with other complications 4 Zach MYERS RVT, RPVI Robert. [address] [place] [address], [address], [place], [id number], [place]. tel:[phone] Referring Provider: Gloria Diez MD, [address] [place] [address] [address], [place], [address]. tel:[phone] [facility], [address] [place] [address] [address] 1000[place], [id number], [place] tel:[phone] [facility] - [facility] Encounter for follow-up examination after completed treatment for conditions other than malignant nePain in right leg 4 Zach MYERS RVT, RPVI Robert. [address] [facility], [address], [place], [id number], [place]. tel:[phone] Referring Provider: Gloria Diez MD, [facility] [address], [place], [address]. tel:[phone] [facility], [address] [place] [address] Dr [address] 1000[place], [id number], [place] tel:[phone] [facility] [place] [facility] [place] Encounter for follow-up examination after completed treatment for conditions other than malignant neoplasmVaric ose veins of right lower extremity with pain 4 Zach MYERS RVT, RPVI Robert. [address] [facility], [address], [place], [id number], [place]. tel:[phone] Referring Provider: Christopher Serrano MD, RVT, RPBRUNA, [address] [place] [address], [place], [address] . tel:[phone] [facility], [address] [place] [address] Dr Angela 1000[address] 1000[place], [id number], tel:[phone] [facility] [place] [facility] [place] Varicose veins of right lower extremity with other complications 4 Jasmina Cade. [address] [place] [address], [place], [id number], [place]. tel:[phone] [facility], [address] [place] [address] Dr Angela 1000[facility] 1000[place], [id number], [place] tel:[phone] [facility] [place] [facility] [place] Chronic venous hypertension (idiopathic) with inflammation of right lower extremity 4 Zach MYERS, KRISTINA, RPBRUNA White. [address] [place] [address], [place], [id number], [place]. tel:[phone] Referring Provider: Christopher Serrano MD, KRISTINA, RPBRUNA, [address] [place] [address], [place], [address] . tel:[phone] [facility], [address] [place] [address] Dr Angela 1000[facility] 1000[place], [id number], [place] tel:[phone] [facility] [place] [facility] [place] No Information 4 Zach MYERS RVT, RPBRUNA White. [address] [place] [address], [place], [id number], [place]. tel:[phone] Offic/outpt E&m Estab 5 Min Trial- Telemedicine [place] & [place] [facility], [address] [place] [address] Dr Angela 1000[facility] 1000[place], [id number], tel:[phone] [facility] [place] [facility] [place] Venous insufficiency (chronic) (peripheral)C ramp and spasmRestless legs syndrome 4 Deon Kirkpatrick. [address] [place] [address], [place], [id number], [place]. tel:[phone] Office/Oupt E&M New Pt 45 Mins [facility], [address] [place] [address] [facility] 1000[facility] 1000[place], [id number], tel:[phone] CVR - [facility] Varicose veins of bilateral lower extremities with other complications Pain in left lower legPain in right legPain in left legRestless legs syndromeCramp and spasm 4 Zach MYERS, KRISTINA, GEORGE White. [address] [place] [address], [place], [id number], [place]. tel:[phone] Referring Provider: Gloria Diez MD, [address] [facility] [address], [place], [address]. tel:[phone] [facility], [address] [place] [address] [facility] 1000[facility] 1000[place], [id number], [place] tel:[phone] [facility] Chronic venous hypertension (idiopathic) with other complications of bilateral lower extremity 4 Zach MYERS, KRISTINA, GEORGE White. [address] [place] [address], [place], [id number], [place]. tel:[phone] Referring Provider: Christopher Serrano MD, RVT, GEORGE, [address] [place] [address], [place], [address] . tel:[phone] Family History Family Member Type Diagnosis Age At Onset No Information Payers Payer name Insurance type Covered green party ID Authoriza tion(s) No Information Social [...]
--- NOTE | ~2025-01-15 | US_ITS ---
EXAMINATION: US PELVIS TRANSABDOMINAL AND TRANSVAGINAL CLINICAL INFORMATION: Random , episodic lower abdominal/pelvic pain patient states most recent pain on lower right side yesterday for 2 minutes. Reason for Exam-R10.2 - Pelvic and perineal pain COMPARISON: No recent pertinent studies TECHNIQUE: Ultrasound of the pelvis is performed using both transabdominal and transvaginal transducers along with Doppler. Transvaginal imaging is performed due to inadequate visualization transabdominally. FINDINGS: According to technologist notes, limited examination due to the size of the uterus, peristalsing bowel and body habitus. Uterus: Uterus is not well visualized, but it measures 8.2 x 3.3 x 3.8 cm (volume of 538 cc). Difficult to evaluate for focal lesions. Endometrial echo complex measures 0.2 cm. Ovaries/adnexa: Ovaries could be seen transabdominally only. Right ovary measures 2.2 x 1.7 x 1.7 cm (volume of 3.3 cc). Contains a follicular cyst. Left ovary measures 2.2 x 1.2 x 1.9 cm (volume of 2.6 cc). Unremarkable appearance. No adnexal masses demonstrated. Pelvis: No free fluid. US/US pelvic and transvaginal IMPRESSION: Partially limited examination. No acute sonographic findings. Electronically signed by: Jono Martinez MD 01/15/2025 02:40 PM [facility]
--- OUTSIDE RECORDS SUMMARY | 2025-01-15 15:34 | XMS_ITS | Clinical Summary ---
Author Organization [employer] Address [address] [place] [address] Care Team Providers Care Concreter Name Role Phone Unavailable Primary Care Provider [...]
--- OUTSIDE RECORDS SUMMARY | 2025-01-15 15:34 | XMS_ITS | Encounter Summary ---
Author Organization [employer] [facility] Address [address] [place] [address] Care Team Providers Care Medical Liaison Name Role Phone Unavailable Primary Care Provider Unavailabl e Encounter Details Date Type Department Care Team (Latest Contact Info) Description 05/12/[address] [facility] CONVERSIONS Dental, Provider, DDS Social History [...]
== END 2025-01-15 13:05 | disposition home or self-care (01) ==
LOC: HO.HMGCX 13:04
PROVIDERS: PCP Internal Medicine; Visit Provider Advanced Practice Midwife
DX: R10.20 Pelvic and perineal pain unspecified side (principal)
CPT/HCPCS: 76830; 76856

== ENCOUNTER → 2025-01-15 13:07 | Outpatient (BNV) | payer OTHER, SELFPAY | PROVIDERS: PCP Internal Medicine; Visit Provider Radiology Body Imaging | DX: R10.21 Pelvic and perineal pain right side (principal) | CPT/HCPCS: 76830; 76856 ==

== ENCOUNTER 2025-01-22 08:46 | Outpatient (AMB) | payer OTHER, SELFPAY ==
--- NOTE | 2025-01-22 08:48 | A.OFFVIS_ITS ---
Vital Signs 01/22/25 08:50 Height 5 ft 3 in Weight 206 lb BMI 36.5 BP 128/84 Intake Visit Reasons: Ultra sound follow up Renewal Specialist: Renewal Specialist Present (Lilliana) Accompanied by: Self / Same As Patient Allergies No Known Allergies Allergy (Verified 01/22/25 08:50) Medication List - Last Reconciled 01/22/25 by Lisa Rivas CNM meloxicam 15 mg PO DAILY HPI HPI Ultra sound follow up: Details: Patient is here for her ultrasound follow-up. The ultrasound was ordered because she had intermittent pain on her right side that typically would come m idcycle and get better when her period came. She was worried about it. She has not had a periods since August she gets occasional hot flashes. She said she had to go to the ER twice in the last couple of months for pain in her bones and difficulty even moving her arms and legs she was told that she might have arthritis or lupus and she has an appointment for follow-up in March with a specialist for further evaluation. [facility] Medical History HTN (hypertension) Migraines Surgical History History of delivery Social History Alcohol intake: former Patient Tobacco Use Status: Current everyday Tobacco user Gender identity: Female Female Reproductive History Menstrual Total pregnancies: 2 Full term: 1 Date of last pap smear: 11/13/24 (negative pap smear, negative hpv ) History of abnormal pap smear: Yes (2019,abn, 2011 CINI) Date of Mammogram: 11/16/24 (bi rad 1) Physical Exam Vital Signs: Last Vital Signs BP 128/84 01/22/25 08:50 BMI result Body Mass Index 36.5 Results Reviewed Results Reviewed: Patient: Desi Stahl MR#: [id number] : 1970 Acct:[id number] Age/Sex: 54 / F ADM Date: 01/15/25 Loc: HO.HMGCX Attending Dr: Lisa Rivas CNM Ordering Physician: Lisa Rivas CNM Date of Service: 01/15/25 Procedure(s): US pelvic and transvaginal Accession Number(s): [id number] cc: Gloria Diez MD; Lisa Rivas CNM~ Reason for Exam: R10.2 - Pelvic and perineal pain EXAMINATION: US PELVIS TRANSABDOMINAL AND TRANSVAGINAL CLINICAL INFORMATION: Random , episodic lower abdominal/pelvic pain patient states most recent pain on lower right side yesterday for 2 minutes. Reason for Exam-R10.2 - Pelvic and perineal pain COMPARISON: No recent pertinent studies TECHNIQUE: Ultrasound of the pelvis is performed using both transabdominal and transvaginal transducers along with Doppler. Transvaginal imaging is performed due to inadequate visualization transabdominally. FINDINGS: According to technologist notes, limited examination due to the size of the uterus, peristalsing bowel and body habitus. Uterus: Uterus is not well visualized, but it measures 8.2 x 3.3 x 3.8 cm (volume of 538 cc). Difficult to evaluate for focal lesions. Endometrial echo complex measures 0.2 cm. Ovaries/adnexa: Ovaries could be seen transabdominally only. Right ovary measures 2.2 x 1.7 x 1.7 cm (volume of 3.3 cc). Contains a follicular cyst. Left ovary measures 2.2 x 1.2 x 1.9 cm (volume of 2.6 cc). Unremarkable appearance. No adnexal masses demonstrated. Pelvis: No free fluid. US/US pelvic and transvaginal IMPRESSION: Partially limited examination. No acute sonographic findings. Electronically signed by: Jono Martinez MD 01/15/2025 02:40 PM [facility] Dictated By: Jono Martinez MD Signed By: <Electronically signed by Jono Martinez MD in OV> 01/15/25 1440 DD/ 1312 TD/TT: 01/15/25 1349 Manager Medicaid: Name: StahlDesi nagel Age/Sex: 54/F Attending: Lisa Rivas CNM : 1970 Submitted by: Lisa Rivas CNM Copies to: Gloria Diez MD MR #: [id number] Status: DEP REF Collected: 11/13/24 Location: [facility] Received: 11/14/24 Interpretation Satisfactory for evaluation. Negative for intraepithelial lesion or malignancy. No endocervical cells seen. Coccobacilli consistent with shift in vaginal esthela. HPV High Risk: Negative HPV Genotyping 16: Negative HPV Genotyping 18: Negative Clinical Information LMP: Unknown date Previous PAP test: 2022 negative, 2010 KAREN 1 Other history: History of abnormal cervical Papanicolaou smear Material Received ThinPrep-Cervical Copies To Gloria Diez MD [facility] [address] [place] [address] Drive [address] [place] [address] Lisa Rivas CNM [facility] [address] [place] [address], [address] [place] [address] Electronically Signed By: ROCÍO Perez (ASCP) 11/18/24 1348 As of December 06, 2023, the technical services to include automated prescreening performed by the ThinPrep Imaging System, PAP screening and HPV testing will be performed at [facility] (CLIA #[id number]), [address] [place] [address]. Testing for HPV was performed using the [employer] NADEGE 6800 system. The presence of HPV in the female Patient: Desi Stahl Age/Sex: 54/F MR#: [id number] Page 1 of 2 Assessment & Plan Assessment & Plan (1) Pelvic pain: Comment: Random, sporadic, we will obtain pelvic ultrasound. Code(s): R10.2 - Pelvic and perineal pain Category: Medical (2) Hx of abnormal cervical Pap smear: Comment: 08/15/2022 Pap is negative with negative HPV.; 11/13/2024 Pap is negative with negative HPV. Code(s): Z87.42 - Personal history of other diseases of the female genital tract Category: Medical (3) Perimenopause: Code(s): N95.1 - Menopausal and female climacteric states Category: Medical Plan I reviewed her essentially normal findings and reviewed her symptoms and what happens in menopause and perimenopause and normal cycles and is cycles 1 down. Her symptoms and her findings are all consistent with this. Reviewed her worrisome concerns about her bone and joint pains and her evaluation she was screened for tick-borne diseases as well in the ER. 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 Urged the best self care that she can manage with gentle movement and not to surrender to her joints being uncomfortable and to try to keep things moving. RTC 1 year. Coding Level of Care Code Est Pt Level 3 (71203) Diagnoses Pelvic pain R10.2 Hx of abnormal cervical Pap smear Z87.42 Perimenopause N95.1
[2025-01-22 08:50] VITALS: BP 128/84; BMI 36.5
== END 2025-01-22 10:21 | disposition home or self-care (01) ==
LOC: HO.HWSM 08:46
PROVIDERS: PCP Internal Medicine; Visit Provider Advanced Practice Midwife
DX: R10.20 Pelvic and perineal pain unspecified side (principal); Z87.42 Personal history of other diseases of the female genital tract; N95.1 Menopausal and female climacteric states
CPT/HCPCS: 99213

== ENCOUNTER → 2025-01-22 08:46 | Outpatient (BNVA) | payer OTHER, SELFPAY | PROVIDERS: PCP Internal Medicine; Visit Provider Advanced Practice Midwife | DX: R10.21 Pelvic and perineal pain right side (principal); N95.1 Menopausal and female climacteric states; Z87.42 Personal history of other diseases of the female genital tract | CPT/HCPCS: 99212 ==

== ENCOUNTER 2025-02-10 15:16 | Emergency (ER) | payer OTHER, SELFPAY ==
[2025-02-10 15:32] VITALS: BP 139/87; PULSE 83; RESP 18; TEMP 36.2; O2SAT 98; BMI 37.5
--- NOTE | 2025-02-10 15:33 | ED_ITS ---
HPI - General Adult General Chief complaint: General Medical Stated complaint: Body pain Time Seen by Provider: 02/10/25 15:36 Source: patient Mode of arrival: ambulatory Limitations: no limitations History of Present Illness ED Provider: Ana Cristina Ríos PA-C HPI narrative: Patient is a 54 year old female with a history of HTN, migraines, and osteoarthritis presenting to the emergency department today with musculoskeletal / arthritic pain. Patient states that she recently ran out of her previous prescription of prednisone and she would like more as that is what helps the pain the most. Patient states that she has not talked to her PCP about this issue. Patient denies any other complaints at this time. Relieving factors: none Exacerbating factors: none Related Data Previous Rx's ?Medication ?Instructions ?Recorded meloxicam 15 mg tablet 15 mg PO DAILY #30 tabs 12/15 03/09 prednisone 20 mg tablet 40 mg (2 x 20 mg) PO DAILY C OPD 02/10/25 exacerbation 5 days #10 tabs Allergies Allergy/AdvReac Type Severity Reaction Status Date / Time No Known Allergies Allergy Verified 02/10/25 15:34 Review of Systems Constitutional: Constitutional: Reports as per HPI Eyes: Eyes: Reports as per HPI ENT: Reports as per HPI Cardiovascular: Cardiovascular: Reports as per HPI Respiratory: Respiratory: Reports as per HPI Gastrointestinal: Gastrointestinal: Reports as per HPI Genitourinary: Genitourinary: Reports as per HPI Musculoskeletal: Musculoskeletal: Reports as per HPI Integumentary/Breasts: Skin/Breast: Reports as per HPI Neurologic: Reports as per HPI Psychiatric: Psychiatric: Reports as per HPI Endocrine: Endocrine: Reports as per HPI Hematologic/Lymphatic: Hematologic/Lymphatic: Reports as per HPI Allergic/Immunologic: Allergic/Immunologic: Reports as per HPI PMFSH Past Medical History Attestation statement: The following information was validated with the patient. Source: old records reviewed and nursing notes reviewed Medical History HTN (hypertension) Migraines Surgical History History of delivery Social History Social History Alcohol intake: former Patient Tobacco Use Status: Current everyday Tobacco user Advance Directives: No Advance Directives Information Provided: No Do you have a plan to hurt others: No Plan Gender identity: Female Physical Exam ED Vital Signs: Vital Signs - 24 hr 02/10/25 15:32 02/10/25 15:59 Temperature 97.2 F 97.2 F Pulse Rate 83 83 Respiratory Rate 18 18 Blood Pressure 139/87 139/87 Pulse Oximetry 98 98 Oxygen Delivery Method Room Air BMI result Body Mass Index 37.5 Const General: cooperative, alert and awake Orientation/consciousness: patient oriented x3 HENMT Head: Yes normal to inspection and Yes atraumatic Ears: hearing grossly normal bilaterally and external ears normal General nose exam: Normal external nose present, no nasal discharge noted and no epistaxis Face and sinus: Yes normal facial exam, No abrasion and No laceration Mouth: Normal oral and palatal mucosa present, no drooling and no muffled voice Eyes General: appearance normal, both eyes and all related structures Periorbital: periorbital findings normal Eyelids: Yes eyelids normal Conjunctivae: conjunctivae normal Pupils: Equal, round and reactive pupils present EOM: EOMs intact bilaterally Resp Effort & Inspection: normal respiratory effort and able to speak in complete sentences Neuro General: patient oriented x3, moves all extremities and CN's II-XI intact bilaterally Cranial nerves: Yes Equal, round and reactive pupils present Cognition (Neuro): normal cognition Extrem General: Yes full ROM Psych Appearance: grossly normal Mental Status: mental status grossly normal Attitude: cooperative Medical Decision Making Medical Decision Making MDM Narrative: Patient is a 54 year old female with a history of HTN, migraines, and osteoarthritis presenting to the emergency department today with musculoskeletal / arthritic pain. Patient's physical exam was as noted in the physical exam portion of this note. I explained my physical exam findings to the patient. I answered all questions asked by the patient. I explained to the patient that I will give her a small dose of prednisone now but that it is crucial she follow up with her primary care provider for this as it is inappropriate to continue utilizing the ER for it. I stressed the importance of the patient taking her medication as directed (either prescribed or as the over the counter packaging recommends). I stressed the importance of the patient following up with her primary care provider. I stressed the importance of the patient returning to the emergency department immediately if her symptoms were to worsen or if she were to develop any dizziness, shortness of breath, difficulty breathing, chest pain, blurry vision, loss of vision, nausea, vomiting, abdominal pain, fever, chills, back pain, or any other complaints. Patient verbalized agreement and understanding with this treatment plan and discharge. Differential Diagnosis Differential Diagnoses: The differential diagnosis associated with the presentation includes Arthritic pain Osteoartheritis Admission/Observation Consideration of admission/observation: Escalation of care including admission/observation considered Patient would have been admitted to the hospital had her clinical presentation warranted hospital admission. Discharge Plan Discharge Clinical Impression: Musculoskeletal pain Patient Disposition: Home, Self-Care Instructions: Musculoskeletal Pain (ED) Additional Instructions: You have been prescribed prednisone for your generalized musculoskeletal pain because you stated that has helped you before. You have arthritis. You MUST follow up with your primary care provider about this. IF you are prescribed home medications and/or you are taking over the counter me dications at home - it is very important you continue to do so as prescribed / directed unless told otherwise by a healthcare provider. Follow up with your primary care provider. Do your best to stay well hydrated and rest. Return to the emergency department immediately if your symptoms worsen or if you develop any numbness, tingling, dizziness, shortness of breath, difficulty breathing, chest pain, blurry vision, loss of vision, nausea, vomiting, abdominal pain, fever, chills, back pain, or any other complaints. Please see the information below about our Patient Portal. If you are not yet enrolled in the [facility] Patient Portal, you will receive an enrollment email invitation following your visit to any [facility] setting. You may also self-enroll in the Patient Portal by visiting our website: [email or web address] The following information is required to access the Patient Portal: - [place] [facility] [place] - Your personal home email address (must match what is in your electronic medical record, Registration staff can assist with this) - Name - Date of Capabilities of the Patient Portal: - Message some providers - View upcoming appointments - Access your health summary, medical history, and visit history - View current conditions and allergies - View procedure and lab results - View your medications, including guidelines, side effects, and precautions - Complete pre-appointment questionnaires requested by your provider - Ready summary reports of your office visits and procedures To access the Patient Portal Mobile [employer], follow these directions: - Search [employer] in the [employer] Store or [employer] Store - Download the [employer] - Search for [facility] - Enter your login/password Prescriptions: New prednisone 20 mg tablet 40 mg PO DAILY 5 Days Qty: 10 0RF No Action meloxicam 15 mg tablet 15 mg PO DAILY Qty: 30 0RF Referrals: Gloria Diez MD [Primary Care Provider, Internal Medicine] Interventions: ED Discharge Assessment Last Done: 02/10/25 15:59 Discharge Date/Time: 02/10/25 15:59 Print Language: Vincentian
[2025-02-10 15:59] VITALS: BP 139/87; PULSE 83; RESP 18; TEMP 36.2; O2SAT 98
--- OUTSIDE RECORDS SUMMARY | 2025-02-10 17:42 | XMS_ITS | Encounter Summary ---
Author Organization [employer] [facility] Address [address] [place] [address] Care Team Providers Care Case Assembler Name Role Phone Unavailable Primary Care Provider Unavailabl e Encounter Details Date Type Department Care Team (Latest Contact Info) Description 05/12/2020 Abstract [facility] Dental, Provider, DDS Social History [...]
--- OUTSIDE RECORDS SUMMARY | 2025-02-10 17:42 | XMS_ITS | Clinical Summary ---
Author Organization [employer] Address [address] [place] [address] Care Team Providers Care Special Skills Officer Name Role Phone Unavailable Primary Care Provider [...]
== END 2025-02-10 15:59 | disposition home or self-care (01) ==
LOC: HO.ED 15:44
PROVIDERS: Emergency Provider Emergency Medicine; PCP Internal Medicine
DX: M79.10 Myalgia, unspecified site (principal); I10 Essential (primary) hypertension; F17.210 Nicotine dependence, cigarettes, uncomplicated
CPT/HCPCS: 99282